=== PATIENT | female | born 1945 | race Caucasian/White ===

== ENCOUNTER → 2017-06-12 | Outpatient (CLI) | payer MEDICARE ==
--- NOTE | 2017-06-13 09:38 | MM ---
Reason for exam: screening (asymptomatic). Last mammogram was performed 1 year and 2 months ago. History: Patient is postmenopausal. Physical Findings: A clinical breast exam by your physician is recommended on an annual basis and results should be correlated with mammographic findings. MG Screening Mammo w CAD Bilateral CC and MLO view(s) were taken. Prior study comparison: April 21, 2016, bilateral MG screening mammo w CAD. November 17, 2014, bilateral MG screening mammo w CAD. The breast tissue is heterogeneously dense. This may lower the sensitivity of mammography. Stable benign calcifications. There is no discrete abnormality. No significant changes when compared with prior studies. ASSESSMENT: Benign, BI-RAD 2 RECOMMENDATION: Routine screening mammogram of both breasts in 1 year.
== END | disposition home or self-care (01) ==
LOC: RADMAMWWP 13:53
PROVIDERS: ATTEND Internal Medicine
DX: Z12.31 Encounter for screening mammogram for malignant neoplasm of breast (principal)

== ENCOUNTER → 2018-07-19 | Outpatient (CLI) | payer MEDICARE ==
--- NOTE | 2018-07-20 13:21 | MM ---
Reason for exam: screening (asymptomatic). Last mammogram was performed 1 year and 1 month ago. History: Patient is postmenopausal. Physical Findings: A clinical breast exam by your physician is recommended on an annual basis and results should be correlated with mammographic findings. MG Screening Mammo w CAD Bilateral CC and MLO view(s) were taken. Prior study comparison: June 12, 2017, bilateral MG screening mammo w CAD. April 21, 2016, bilateral MG screening mammo w CAD. The breast tissue is heterogeneously dense. This may lower the sensitivity of mammography. Stable benign calcifications. There is no discrete abnormality. No significant changes when compared with prior studies. ASSESSMENT: Benign, BI-RAD 2 RECOMMENDATION: Routine screening mammogram of both breasts in 1 year.
== END | disposition home or self-care (01) ==
LOC: RADMAMWWP 16:33
PROVIDERS: ATTEND Internal Medicine
DX: Z12.31 Encounter for screening mammogram for malignant neoplasm of breast (principal)
CPT/HCPCS: 77067

== ENCOUNTER → 2018-08-01 | Outpatient (CLI) | payer MEDICARE ==
--- NOTE | 2018-08-01 16:36 | XR ---
EXAMINATION TYPE: XR knee complete bilateral DATE OF EXAM: 08/01/2018 COMPARISON: NONE HISTORY: Chronic pain TECHNIQUE: 3 views each knee FINDINGS: There is calcification of the menisci and more on the left side. I see no displaced fractur e. There is narrowing of patellofemoral joint spaces. There is mild narrowing of the joint spaces. IMPRESSION: Chondrocalcinosis. No fracture seen. Osteoarthritic joint space narrowing.
--- NOTE | 2018-08-01 16:40 | XR ---
EXAMINATION TYPE: XR lumbosacral spine min 4V DATE OF EXAM: 08/01/2018 COMPARISON: NONE HISTORY: Chronic pain TECHNIQUE: 5 views FINDINGS: There is mild thoracolumbar levoscoliosis. There is some narrowing of the L4-5 L5-S1 disc s paces. There is spurring of endplates throughout the lumbar spine. Posterior elements appear intact. Sacroiliac joints are intact. IMPRESSION: Spondylotic changes. No fracture seen.
== END | disposition home or self-care (01) ==
LOC: RADXRMAIN 15:49
PROVIDERS: ATTEND Internal Medicine
DX: M47.817 Spondylosis without myelopathy or radiculopathy, lumbosacral region (principal); M11.262 Other chondrocalcinosis, left knee; M11.261 Other chondrocalcinosis, right knee; M17.0 Bilateral primary osteoarthritis of knee
CPT/HCPCS: 72110

== ENCOUNTER → 2018-11-29 | Outpatient (CLI) | payer MEDICARE ==
--- NOTE | 2018-11-30 08:52 | BD ---
EXAMINATION TYPE: Axial Bone Density DATE OF EXAM: 11/29/2018 COMPARISON: None. Baseline. CLINICAL HISTORY: M 89.9 disorder of bone Height: 62 Weight: 98.9 FRAX RISK QUESTIONS: Alcohol (3 or more units per day): NO Family History (Parent hip fracture): no Glucocorticoids (More than 3mos): no (Ex: prednisone, prednisolone, methylprednisolone, dexamethasone, and hydrocortisone). History of Fracture in Adulthood: no Secondary Osteoporosis: 1. Type 1 Diabetes: no 2. Hyperthyroidism: no 3. Menopause before 45: yes 4. Malnutrition: no 5. Chronic liver disease: no Rheumatoid Arthritis: yes Current Tobacco Use: no RISK FACTORS HISTORY OF: Family History of Osteoporosis: no Active: yes Diet low in dairy products/other sources of calcium: yes Postmenopausal woman: early age of 39 Lost more than 2 inches in height since high school: no MEDICATIONS: statins, hydrocodone, motrin Additional History: EXAM MEASUREMENTS: Bone mineral densitometry was performed using the [employer] System. Bone mineral density as measured about the Lumbar spine is: ----- L1-L4(G/cm2): 0.950 T Score Values are as follows: ----- L2: -2.4 ----- L3: -2.2 ----- L4: -0.9 ----- L1-L4: -1.9 Bone mineral density : baseline Bone mineral density about the R hip (g/cm2): 0.662 Bone mineral density about the L hip (g/cm2): 0.625 T Score values are as follows: -----R Neck: -2.7 -----L Neck: -3.0 -----R Total: -2.6 -----L Total: -3.0 Bone mineral density : baseline IMPRESSION: Osteoporosis (T Score less than -2.5). There is increased fracture risk and therapy is usually indicated based on age. Re-Screen 1-2 years. NOTE: T-SCORE=SD OF THE YOUNG ADULT MEAN.
== END | disposition home or self-care (01) ==
LOC: RADBDWWP 15:30
PROVIDERS: ATTEND Internal Medicine
DX: M81.0 Age-related osteoporosis without current pathological fracture (principal)
CPT/HCPCS: 77080

== ENCOUNTER → 2019-01-15 | Outpatient (CLI) | payer MEDICARE ==
[~2019-01-15] MED LIST: DENOSUMAB 60 MG/ML 1 ML SYRINGE SQ NR
[2019-01-15 13:47] VITALS: BP 118/66; PULSE 80; RESP 16; TEMP 97.7
== END ==
LOC: PROCWHC3 13:25
PROVIDERS: ATTEND Internal Medicine
DX: M81.0 Age-related osteoporosis without current pathological fracture (principal)
CPT/HCPCS: 96372; J0897

== ENCOUNTER → 2019-02-13 | Outpatient (CLI) | payer MEDICARE ==
--- NOTE | 2019-02-13 14:28 | XR ---
EXAMINATION TYPE: XR lumbosacral spine min 4V DATE OF EXAM: 02/13/2019 CLINICAL HISTORY: 08/01/2018 TECHNIQUE: Frontal, lateral, and oblique images of the lumbar spine are obtained. COMPARISON: 08/01/2018 FINDINGS: There is a mild levoscoliosis of the lumbar spine. Intervertebral disc space narrowing is seen at L4-L5 and L5-S1. There is grade 1 anterolisthesis of L4 on L5 unchanged from the prior. Multi level anterior osteophytes and facet arthropathy are seen within the lumbar spine. No new vertebral b dulce height loss. Mild atherosclerosis of the abdominal aorta. Oblique images demonstrate neural foraminal narrowing at L4-L5 on the right and at L4-L5 as well as L 5-S1 on the left appearing mild radiographically. Cholecystectomy clips are noted. There is generaliz ed osseous demineralization seen. IMPRESSION: 1. No acute fracture or new malalignment is seen in the lumbar spine. Stable grade 1 anterolisthesis of L4 on L5 in comparison to 2018. 2. Moderate multilevel degenerative disc disease and mild levoscoliosis of the lumbar spine. 3. Generalized osseous demineralization.
== END | disposition home or self-care (01) ==
LOC: RADXRMAIN 11:47
PROVIDERS: ATTEND Internal Medicine
DX: M51.36 Other intervertebral disc degeneration, lumbar region (principal); M43.16 Spondylolisthesis, lumbar region; M41.86 Other forms of scoliosis, lumbar region; M81.0 Age-related osteoporosis without current pathological fracture
CPT/HCPCS: 72110

== ENCOUNTER → 2019-12-24 | Outpatient (CLI) | payer MEDICARE ==
--- NOTE | 2019-12-25 09:06 | MM ---
Reason for exam: screening (asymptomatic). Last mammogram was performed 1 year and 5 months ago. History: Patient is postmenopausal. Physical Findings: A clinical breast exam by your physician is recommended on an annual basis and results should be correlated with mammographic findings. MG 3D Screening Mammo W/Cad Bilateral CC and MLO view(s) were taken. Prior study comparison: July 19, 2018, bilateral MG screening mammo w CAD. June 12, 2017, bilateral MG screening mammo w CAD. The breast tissue is heterogeneously dense. This may lower the sensitivity of mammography. Benign appearing bilateral calcifications. No suspicious abnormality. No significant changes when compared with prior studies. ASSESSMENT: Benign, BI-RAD 2 RECOMMENDATION: Routine screening mammogram of both breasts in 1 year.
== END | disposition home or self-care (01) ==
LOC: RADMAMWWP 09:18
PROVIDERS: ATTEND Internal Medicine
DX: Z12.31 Encounter for screening mammogram for malignant neoplasm of breast (principal)
CPT/HCPCS: 77063; 77067

== ENCOUNTER 2021-05-02 14:11 | Inpatient (IN) | payer MEDICARE ==
[2021-05-02] MEDS ORDERED: KETOROLAC 15 MG/ML 1 ML VIAL IVP STA (15:13)
[2021-05-02] MEDS ORDERED: SODIUM CHLORIDE 0.9% 1,000 ML IV STA (15:13)
[2021-05-02 15:36] LABS: Basophils % (A) 0 %; Eosinophils % (A) 1 %; HCT 33.9 % (34.0-46.0); HGB 11.3 gm/dL (11.4-16.0); Lymphocytes # (A) 0.8 k/uL (1.0-4.8); Lymphocytes % (A) 13 %; MCH 26.9 pg (25.0-35.0); MCHC 33.4 g/dL (31.0-37.0); MCV 80.5 fL (80.0-100.0); Mean Platelet Volume 7.2; Monocytes # (A) 0.3 k/uL (0-1.0); Monocytes % (A) 5 %; Neutrophils % (A) 80 %; Platelet Count 455 k/uL (150-450); RBC 4.21 m/uL (3.80-5.40); RDW 13.2 % (11.5-15.5); WBC 6.2 k/uL (3.8-10.6)
[2021-05-02 15:51] LABS: African American GFR (CKD) >90 (>60 ml/min/1.73 sqM); Albumin 3.6 g/dL (3.5-5.0); Alkaline Phosphatase 91 U/L (38-126); Anion Gap 7 mmol/L; Blood Urea Nitrogen 24 mg/dL (7-17); Calcium 9.6 mg/dL (8.4-10.2); Carbon Dioxide 30 mmol/L (22-30); Chloride 100 mmol/L (98-107); Glucose 101 mg/dL (74-99); Magnesium 1.9 mg/dL (1.6-2.3); Non-African American GFR(CKD) 90 (>60 ml/min/1.73 sqM); Potassium 4.8 mmol/L (3.5-5.1); Sodium 137 mmol/L (137-145); Total Bilirubin 0.4 mg/dL (0.2-1.3); Total Protein 6.7 g/dL (6.3-8.2)
[2021-05-02 16:15] LABS: ALT 3390 U/L (4-34)
--- NOTE | 2021-05-02 16:37 | XR ---
Result: History: Pain. Comparison: None available. Technique: 3 views of the right knee. Findings: No acute fracture or dislocation is seen. The visualized osseous structures are in anatomic alignmen t. There is mild to moderate osteoarthritis of the lateral compartment, otherwise mild osteoarthriti s elsewhere. Small superior patellar enthesophyte seen. There is at least small knee joint effusion. Impression: No acute osseous abnormality. Mild to moderate degenerative changes with joint effusion.
[2021-05-02 16:39] LABS: AST 3968 U/L (14-36)
[2021-05-02 18:18] LABS: Amylase 77 U/L (30-110); Lipase 244 U/L (23-300)
--- NOTE | 2021-05-02 18:48 | ED ---
General Adult HPI - General Chief complaint: Extremity Problem,Nontraumatic Stated complaint: Low BP Time Seen by Provider: 05/02/21 14:46 Source: patient, RN notes reviewed Mode of arrival: ambulatory Limitations: no limitations - History of Present Illness Initial comments: 76-year-old female with a past medical history of hyperlipidemia presents to the emergency room for a chief complaint of bilateral leg pain. Patient reports that she has had chronic leg pain from her arthritis for years. However over the past few weeks the pain has worsened. She has some swelling in her right knee as well. States that this has also been causing her pain. Her friend reports that she has not been eating or drinking at home and she feels she could be dehydrated.Patient has no other complaints at this time including shortness of breath, chest pain, abdominal pain, nausea or vomiting, headache, or visual changes. - Related Data Home Medications Medication Instructions Recorded Confirmed No Known Home Medications 05/02/21 05/02/21 Allergies Allergy/AdvReac Type Severity Reaction Status Date / Time No Known Allergies Allergy Verified 05/02/21 17:54 Review of Systems ROS Statement: Those systems with pertinent positive or pertinent negative responses have been documented in the HPI. ROS Other: All systems not noted in ROS Statement are negative. Past Medical History Past Medical History: Hyperlipidemia, Osteoarthritis (OA) History of Any Multi-Drug Resistant Organisms: None Reported Past Surgical History: Hysterectomy Past Psychological History: No Psychological Hx Reported Smoking Status: Former smoker Past Alcohol Use History: None Reported Past Drug Use History: None Reported - Past Family History Father Family Medical History: Coronary Artery Disease (CAD) Mother Family Medical History: Coronary Artery Disease (CAD), Myocardial Infarction (ND) General Exam - General Exam Comments Initial Comments: Right leg: Patient does have some mild edema noted of the right knee. No erythema. Flexion to 90 of the right knee, extension to neutral position. DP pulse 2+. Capillary refill less than 2 seconds. No tenderness throughout the lower extremity Left leg: No erythema or edema. Full range of motion of the left lower extremity. DP pulse 2+. Capillary refill less than 2 seconds. No tenderness throughout the left lower extremity Limitations: no limitations General appearance: alert, in no apparent distress Head exam: Present: atraumatic Eye exam: Present: normal appearance, PERRL, EOMI. Absent: scleral icterus, conjunctival injection, periorbital swelling ENT exam: Present: normal exam, mucous membranes moist Neck exam: Present: normal inspection. Absent: tenderness, meningismus, l ymphadenopathy Respiratory exam: Present: normal lung sounds bilaterally. Absent: respiratory distress, wheezes, rales, rhonchi, stridor Cardiovascular Exam: Present: regular rate, normal rhythm, normal heart sounds. Absent: systolic murmur, diastolic murmur, rubs, gallop, clicks GI/Abdominal exam: Present: soft, normal bowel sounds. Absent: distended, tenderness, guarding, rebound, rigid Course Vital Signs 05/02/21 05/02/21 05/02/21 14:12 15:18 16:00 Temperature 98.5 F 97.4 F L 97.4 F L Pulse Rate 83 78 78 Respiratory 16 18 18 Rate Blood Pressure 114/65 118/54 118/54 O2 Sat by Pulse 97 96 96 Oximetry 05/02/21 17:00 Temperature Pulse Rate 75 Respiratory 18 Rate Blood Pressure 136/72 O2 Sat by Pulse 98 Oximetry Medical Decision Making - Medical Decision Making Vitals are stable. CBC is unremarkable. CMP does show evidence of dehydration as well as significant transaminitis with AST of 3900 and an ALT of 3300. amylase and lipase are normal. Acute hepatitis panel added. Case was discussed with Dr. Obregon who does accept admission. Requests upper abdominal ultrasound be performed. This was ordered prior to admission. GI will be consulted. X-ray of the knee was also obtained which shows no acute osseous abnormality but there is mild to moderate degenerative changes with joint effusion. - Lab Data Result diagrams: 05/02/21 15:31 05/02/21 15:31 Lab Results 05/02/21 05/02/21 05/02/21 Range/Units 15:13 15:31 15:31 WBC 6.2 (3.8-10.6) k/uL RBC 4.21 (3.80-5.40) m/uL Hgb 11.3 L (11.4-16.0) gm/dL Hct 33.9 L (34.0-46.0) % MCV 80.5 (80.0-100.0) fL MCH 26.9 (25.0-35.0) pg MCHC 33.4 (31.0-37.0) g/dL RDW 13.2 (11.5-15.5) % Plt Count 455 H (150-450) k/uL MPV 7.2 Neutrophils % 80 % Lymphocytes % 13 % Monocytes % 5 % Eosinophils % 1 % Basophils % 0 % Neutrophils # 5.0 (1.3-7.7) k/uL Lymphocytes # 0.8 L (1.0-4.8) k/uL Monocytes # 0.3 (0-1.0) k/uL Eosinophils # 0.0 (0-0.7) k/uL Basophils # 0.0 (0-0.2) k/uL Sodium 137 (137-145) mmol/L Potassium 4.8 (3.5-5.1) mmol/L Chloride 100 (98-107) mmol/L Carbon Dioxide 30 (22-30) mmol/L Anion Gap 7 mmol/L BUN 24 H (7-17) mg/dL Creatinine 0.57 (0.52-1.04) mg/dL Est GFR (CKD-EPI)AfAm >90 (>60 ml/min/1.73 sqM) Est GFR (CKD-EPI)NonAf 90 (>60 ml/min/1.73 sqM) Glucose 101 H (74-99) mg/dL Calcium 9.6 (8.4-10.2) mg/dL Magnesium 1.9 (1.6-2.3) mg/dL Total Bilirubin 0.4 (0.2-1.3) mg/dL AST 3968 H (14-36) U/L ALT 3390 H (4-34) U/L Alkaline Phosphatase 91 (38-126) U/L Total Protein 6.7 (6.3-8.2) g/dL Albumin 3.6 (3.5-5.0) g/dL Amylase 77 (30-110) U/L Lipase 244 (23-300) U/L Disposition Clinical Impression: Transaminitis, Chronic leg pain, Effusion of right knee joint Disposition: ADMITTED IP TO THIS HOSP Is patient prescribed a controlled substance at d/c from ED?: No Referrals: James Rosen MD [Primary Care Provider] - 1-2 days Time of Disposition: 18:57
--- NOTE | 2021-05-02 18:52 | US ---
EXAMINATION TYPE: US abdomen limited DATE OF EXAM: 05/02/2021 COMPARISON: NONE CLINICAL HISTORY: ruq. EXAM MEASUREMENTS: Liver Length: 14.4 cm CBD: 0.7 cm Right Kidney: 9.3 x 3.8 x 4.8 cm Pancreas: visualized portions wnl, limited by overlying midline bowel gas Liver: wnl Gallbladder: not seen at this time, patient states she has not had her gallbladder removed Evidence for sonographic Giraldo's sign: no CBD: dilated Right Kidney: wnl IMPRESSION: No sonographic evidence of acute abnormality. Gallbladder not definitively identified. Recommend correlation with surgical history.
[2021-05-02] MEDS ORDERED: NALOXONE 0.4 MG/ML 1 ML VIAL IV PRN (18:58)
[2021-05-02] MEDS: SODIUM CHLORIDE 0.9% 1,000 ML IV SCH (20:25)
[2021-05-02] MEDS: HYDROmorphone 0.5 MG/0.5 ML SYRINGE IVP PRN (21:47)
[2021-05-02 23:18] LABS: Hepatitis A Antibody IgM Non-Reactive (Non-Reactive); Hepatitis B Core IgM Non-Reactive (Non-Reactive); Hepatitis B Surface Antigen Non-Reactive (Non-Reactive); Hepatitis C IgG Antibody Non-Reactive (Non-Reactive)
[2021-05-03 08:38] LABS: INR 1.2 (<1.2)
[2021-05-03 08:41] LABS: HCT 31.8 % (34.0-46.0); HGB 10.7 gm/dL (11.4-16.0); Hypochromasia Slight; MCH 27.5 pg (25.0-35.0); MCHC 33.6 g/dL (31.0-37.0); MCV 81.9 fL (80.0-100.0); Platelet Count 383 k/uL (150-450); RBC 3.89 m/uL (3.80-5.40); RDW 13.1 % (11.5-15.5); WBC 5.2 k/uL (3.8-10.6)
[2021-05-03 08:49] LABS: African American GFR (CKD) >90 (>60 ml/min/1.73 sqM); Albumin 2.9 g/dL (3.5-5.0); Alkaline Phosphatase 75 U/L (38-126); Anion Gap 8 mmol/L; Blood Urea Nitrogen 23 mg/dL (7-17); Calcium 8.8 mg/dL (8.4-10.2); Carbon Dioxide 25 mmol/L (22-30); Chloride 104 mmol/L (98-107); Globulin 2.8 g/dL; Glucose 139 mg/dL (74-99); Non-African American GFR(CKD) 89 (>60 ml/min/1.73 sqM); Potassium 4.1 mmol/L (3.5-5.1); Sodium 137 mmol/L (137-145); Total Bilirubin 0.4 mg/dL (0.2-1.3); Total Protein 5.7 g/dL (6.3-8.2)
[2021-05-03 09:15] LABS: ALT 2224 U/L (4-34)
[2021-05-03 09:26] LABS: AST 1427 U/L (14-36)
[2021-05-03 12:37] LABS: Alpha Fetoprotein, Tumor Mkr <2.5 ng/mL (0.0-7.9)
[2021-05-03] MEDS: SODIUM CHLORIDE 0.9% 1,000 ML IV SCH (14:26)
[2021-05-03 15:31] VITALS: BMI 16.5
[2021-05-03] MEDS ORDERED: ONDANSETRON 4 MG/2 ML VIAL IVP PRN (16:48)
[2021-05-03] MEDS ORDERED: IPRATROPIUM-ALBUTEROL 3 ML NEB INHALATION PRN (16:48)
--- NOTE | 2021-05-03 18:00 | CONS ---
CONSULTATION DATE OF DICTATION: May 03, 2021. REQUESTING PHYSICIAN: Dr. Gaston. REASON FOR CONSULTATION: Elevated LFTs. HISTORY OF PRESENT ILLNESS: The patient is a 76-year-old pleasant white female with no significant past medical history, admitted to hospital complaining of bilateral leg pain for the last 3 days duration. She complains of tingling, numbness and shooting, burning pain in the lower extremities. The symptoms have been progressively getting worse for the last few days. Came to the emergency room and on routine labs she was noted to have significant elevation of ALT and AST with AST of 3968 and ALT of 3390. T-bilirubin and alkaline phosphatase are within normal limits. The patient denies taking any new medications over the counter. She denies any recent infections. No fever, no chills. She reports no abdominal pain, nausea, vomiting. She takes multivitamins over the counter and Melatonin. No recent antibiotic use. No recent travel history. No prior history of chronic liver disease. No history of jaundice or hepatitis in the past. She did have hepatitis serologies for A, B and C that were negative. Repeat labs from today showed an AST of 1427, ALT of 2224. She also had ultrasound of the abdomen done that showed normal-appearing liver, gallbladder was not seen and slightly dilated CBD. PAST MEDICAL HISTORY: Significant for lower leg pain. PAST SURGICAL HISTORY: Hysterectomy. MEDICATIONS: Medications at home none other than multivitamins. FAMILY HISTORY: Father coronary artery disease. Mother coronary artery disease. SOCIAL HISTORY: Chronic smoker. No alcohol use. No intravenous drug use. REVIEW OF SYSTEMS: CARDIOPULMONARY: No chest pain or shortness of breath. : No dysuria, no hematuria. SKIN unremarkable. ENDOCRINE unremarkable. MUSCULOSKELETAL: Mild chronic arthritis and takes [id number] Tylenol Arthritis as needed. HEMATOLOGY: Unremarkable. PSYCHIATRIC unremarkable. ENT/vision unremarkable. CONSTITUTIONAL: No recent weight loss. No fever, chills, night sweats. GI as mentioned above. PHYSICAL EXAMINATION: Appears comfortable. Vital signs are stable. Blood pressure is 118/60, pulse rate 70, temperature 97. HEENT examination unremarkable. Conjunctivae pink. Sclerae anicteric. Oral cavity no lesions. NECK: No JVD or lymph node enlargement. CHEST was clear to auscultation. HEART: Regular rate and rhythm. ABDOMEN: Soft. Bowel sounds are positive. No organomegaly. EXTREMITIES: No pedal edema. NEUROLOGIC: Alert and oriented x3. No focal deficits. LABS: From yesterday: WBC 6.2, hemoglobin 11.3, platelets 455. BUN and creatinine are normal. AST 3968, ALT 3390, T bilirubin 0.4, alkaline phosphatase 91. Labs from today: AST down to 1427, ALT down to 2224. T-bilirubin, alkaline phosphatase is normal. INR 1.2, hemoglobin 10.7, WBC 5.2, and platelets of 383. IMPRESSION: Asymptomatic elevation of serum transaminases and medical picture is consistent with acute hepatitis. The patient noted to have significant elevation of serum transaminases in the range of 3000 which are somewhat improved today. Hepatitis serologies for A, B and C are negative. The patient denies taking any prescription medications or taking any new medications recently. No history of Tylenol use other than Tylenol Arthritis that she takes 1 pill a day. Acetaminophen level was less than 10. At this time, possibility of medication induced hepatitis versus viral hepatitis or other etiologies need to be considered. RECOMMENDATIONS: 1. We will continue workup for acute hepatitis. We will obtain CMV and EBV viral serologies. 2. Monitor LFTs closely. 3. If her serum transaminases continue to improve, she will not need any further workup. However, if they continue to persistently abnormal then we will consider further workup for chronic liver disease and will follow with you closely. Thank you for this consultation. MARV / BASSAM: [id number] /
[2021-05-04] MEDS: HYDROmorphone 0.5 MG/0.5 ML SYRINGE IVP PRN ×2 (00:06→08:55)
[2021-05-04] MEDS: SODIUM CHLORIDE 0.9% 1,000 ML IV SCH ×2 (05:22→07:21)
[2021-05-04] MEDS ORDERED: PANTOPRAZOLE 40 MG TABLET PO SCH (07:30)
[2021-05-04 07:35] LABS: Glucose,Whole Blood 90 mg/dL (75-99)
[2021-05-04] MEDS ORDERED: methylPREDNISolone ACETATE 40 MG/ML 1 ML VIAL INTRAARTIC STA (09:11)
[2021-05-04] MEDS ORDERED: LIDOCAINE 1% INJ 10MG/ML (20 ML MDV) SQ ONE (09:11)
[2021-05-04] MEDS ORDERED: LIDOCAINE 2% INJ 20 MG/ML (20 ML MDV) SQ STA (09:14)
--- NOTE | 2021-05-04 09:19 | P.DS ---
Providers Date of admission: 05/02/21 19:03 Expected date of discharge: 05/04/21 Attending physician: Renny Obregon Consults: 05/02/21 18:59 Consult Physician Routine Consulting Provider: Safia Moura Consult Reason/Comments: acute hepatitis Do you want consulting provider notified?: Yes 05/03/21 09:47 Consult Physician Routine Consulting Provider: Chino Duffy Consult Reason/Comments: right knee effusion Do you want consulting provider notified?: Yes Primary care physician: James Rosen MD Hospital Course: 76-year-old female , my clinic patient who I have not seen for the past year since the unexpected passing away of her with past medical history of hyperlipidemia, rheumatoid arthritis, dementia comes in with worsening swelling and leg pain. Since her right knee pain was worse, patient's family encouraged her to go to the ER for evaluation. Patient denies any other symptoms including nausea or vomiting or abdominal pain, chest pain or shortness of breath. Patient has not been able to take care of herself since the passing away of her in July last year. She has lost her appetite and has stopped all her medications. Vitals are stable temp of 98.3 pulse 74 respiratory rate 20 blood pressure 118/61 labs were reviewed patient has a WBC count of 6.2 hemoglobin 10.3 platelet 455 BUN of 24 creatinine 0.57 glucose 111 increased AST elevated AST 3968 ALT 3390 total bilirubin 0.4 patient does endorse some epigastric pain but denies any nausea or vomiting or black stools. Hepatitis panel ordered. Tylenol levels ordered. Tumor markers ordered. GI consulted. Orthopedic consulted for possible aspiration of the knee 05/04: Patient has been seen by orthopedics for right knee effusion status post aspiration and cortisone injection with recommendations for rest, ice and compression and elevation. Patient in follow-up as an outpatient as needed. Patient has also been seen by GI with recommendations for follow-up outpatient. Repeat blood work reveals significant improvement with total bilirubin normal at 0.3, AST improved to 471 and ALT improved at 1437. Alkaline phosphatase normal at 68. Other lab work done includes CHRISTY is negative, anti-mitochondrial antibody 3.4. CMV nonreactive. EBV less than 10. Patient will be discharged home today once arrangements are completed. Patient will have repeat blood work in 3-4 days. DISCHARGE DIAGNOSES 1. Acute right knee pain secondary to joint effusion status post aspiration and cortisone injection 2. Acute hepatitis with no prior history of hepatitis. 3. Rheumatoid arthritis with osteoarthritis followed Dr. Chang currently has not follow-up with providers. 4. Hyperlipidemia 5. Dementia with underlying depression from loss of . DISCHARGE PLAN Home Impression and plan of care have been directed as dictated by the signing physician. Josie Feng nurse practitioner acting as scribe for signing physician. Patient Condition at Discharge: Good Plan - Discharge Summary Discharge Rx Participant: Yes New Discharge Prescriptions: No Action No Known Home Medications Discharge Medication List No Known Home Medications 05/02/21 [History] Follow up Appointment(s)/Referral(s): James Rosen MD [Primary Care Provider] - 05/07/21 9:15 am Safia Moura MD [STAFF PHYSICIAN] - 05/31/21 2:00 pm Chino Duffy DO [Doctor of Osteopathic Medicine] - 05/28/21 9:30 am Ambulatory/Diagnostic Orders: Comprehensive Metabolic Panel [LAB.AMB] Location: None Selected Patient Instructions/Handouts: Dehydration (DC), Swollen Knee Joint (GEN) Activity/Diet/Wound Care/Special Instructions: No Tylenol, no ibuprofen Discharge Disposition: HOME SELF-CARE
--- NOTE | 2021-05-04 09:27 | P.PN ---
Subjective Progress Note Date: 05/04/21 Principal diagnosis: Elevated LFTs 76-year-old female who presented to the emergency department with complaints of bilateral leg pain. She was noted to have significant elevation in her AST and ALT in the 3006, with no elevation in her total bilirubin or alkaline phosphatase. Patient denies any previous history of liver disease, no history of alcoholism, no recent new medications, does take Tylenol arthritis daily, but only 1 pill. Acetaminophen level was less than 10. Renal ultrasound was unremarkable. Patient is seen and examined sitting up in bed. She is denying a ny abdominal pain, nausea, or vomiting. Jenifer-Ly virus and cytomegalovirus both negative, CHRISTY negative, AFP normal. Repeat labs today are still pending. Patient is eating and tolerating her diet. She states she did get a little lightheaded through the night and this morning. Objective - Vital Signs Vital signs: Vital Signs Temp 98.1 F 05/04/21 07:07 Pulse 69 05/04/21 07:07 Resp 20 05/04/21 07:07 BP 117/64 05/04/21 07:07 Pulse Ox 95 05/04/21 07:14 Intake & Output 05/03/21 05/04/21 05/04/21 18:59 06:59 18:59 Intake Total 1150 900 Output Total 200 Balance 1150 700 Weight 40.823 kg Intake: Intake, IV Titration 750 900 Amount Sodium Chloride 0.9% 1, 750 900 000 ml @ 75 mls/hr IV . [id number] [facility] Rx#:[id number] Oral 400 Output: Urine 200 Other: Voiding Method Toilet Toilet # Voids 3 - Exam General appearance: The patient is alert, oriented, appears in no acute distress. HET: Head is normocephalic and atraumatic. Conjunctiva pink. Sclera anicteric. Neck: Supple without lymphadenopathy. Abdomen: Soft, nontender, nondistended with bowel sounds. No guarding or rigidity. Extremities: Normal skin color and turgor. No pedal edema Skin: No rashes, no jaundice Neurological: No focal deficits. Alert and oriented 3. - Labs CBC & Chem 7: 05/03/21 08:17 05/04/21 06:56 Labs: Abnormal Lab Results - Last 24 Hours (Table) 05/03/21 Range/Units 08:17 AST 1427 H (14-36) U/L Assessment and Plan (1) Transaminitis Narrative/Plan: 76-year-old female who presented to the emergency department with complaints of leg pain was noted to have presenting labs with significantly elevated AST and ALT. Patient has no previous history of liver disease, denies any new medications, does state she takes Tylenol arthritis daily but only 1 pill. Liver enzymes have trended down. Ultrasound was performed and was unremarkable. She is without any abdominal pain, distention, nausea, or vomiting. Findings are consistent with acute hepatitis, Need to consider medication induced hepatitis versus viral hepatitis, however CMV and EBV are both negative, hepatitis panel is negative. We'll need to consider other possible etiologies. Current Visit: Yes Status: Acute Code(s): R74.01 - ELEVATION OF LEVELS OF LIVER TRANSAMINASE LEVELS SNOMED Code(s): 731185790 Plan: 1. Continue symptomatic and supportive care 2. Diet as tolerated 3. CMV, Jenifer-Ly ordered and reviewed 4. Hepatitis panel negative 5. Daily CMP reviewed with LFTs trending down 6. Patient will need outpatient follow-up with gastroenterology to trend liver enzymes Thank you for this consultation, patient may be discharged from a gastroenterology standpoint with close outpatient monitoring Dr. Jason Moura I agree with the dictator's note, documented as a scribe by Diamante Falcon.
[2021-05-04 09:44] VITALS: RESP 16
[2021-05-04 10:14] LABS: African American GFR (CKD) 108.2 (60.0-200.0); Albumin 3.1 g/dL (3.80-4.90); Albumin/Globulin Ratio 1.29 (1.60-3.17); Anion Gap 5.8 mmol/L (4.00-12.00); Calcium 8.1 mg/dL (8.7-10.3); Carbon Dioxide 26.2 mmol/L (21.6-31.8); Globulin 2.4 g/dL (1.6-3.3); Non-African American GFR(CKD) 93.4 (60.0-200.0); Potassium 4.1 mmol/L (3.5-5.5); Total Bilirubin 0.3 mg/dL (0.2-1.2); Total Protein 5.5 g/dL (6.2-8.2)
--- NOTE | 2021-05-04 10:44 | P.HPIM ---
History of Present Illness H&P Date: 05/03/21 76 years old female , my clinic patient who I have not seen for the past year since the unexpected passing away of her with past medical history of hyperlipidemia, rheumatoid arthritis, dementia comes in with worsening swelling and leg pain. Since her right knee pain was worse, patient's family encouraged her to go to the ER for evaluation. Patient denies any other symptoms including nausea or vomiting or abdominal pain, chest pain or shortness of breath. Patient has not been able to take care of herself since the passing away of her in July last year. She has lost her appetite and has stopped all her medications. Vitals are stable temp of 98.3 pulse 74 respiratory rate 20 blood pressure 118/61 labs were reviewed patient has a WBC count of 6.2 hemoglobin 10.3 platelet 455 BUN of 24 creatinine 0.57 glucose 111 increased AST elevated AST 3968 ALT 3390 total bilirubin 0.4 patient does endorse some epigastric pain but denies any nausea or vomiting or black stools. Hepatitis panel ordered. Tylenol levels ordered. Tumor markers ordered. GI consulted. Orthopedic consulted for possible aspiration of the knee Review of Systems Constitutional: No fevers, chills and weight loss. HENT: Negative. Negative for hearing loss. Eyes: Negative. Respiratory: No cough, shortness of breath or hemoptysis. No sputum production and wheezing. Cardiovascular: No chest pain, palpitations, orthopnea, claudication and PND. No swelling of feet Gastrointestinal: Negative for nausea, vomiting and melena. Genitourinary: Negative for urgency and frequency. Musculoskeletal: Negative for myalgias and neck pain. right knee pain on the right Skin: Negative. Negative for itching and rash. Neurological: Negative for headaches. Psychiatric/Behavioral: positive for depression Past Medical History Past Medical History: Dementia (no other significant family history ), Hyperlipidemia, Osteoarthritis (OA), Rheumatoid Arthritis (RA) History of Any Multi-Drug Resistant Organisms: None Reported Past Surgical History: Hysterectomy Past Anesthesia/Blood Transfusion Reactions: No Reported Reaction Past Psychological History: No Psychological Hx Reported Smoking Status: Former smoker Past Alcohol Use History: None Reported Past Drug Use History: None Reported - Past Family History Father Family Medical History: Coronary Artery Disease (CAD) Mother Family Medical History: Coronary Artery Disease (CAD), Myocardial Infarction ([place]) Medications and Allergies Home Medications Medication Instructions Recorded Confirmed Type No Known Home Medications 05/02/21 05/02/21 History Allergies Allergy/AdvReac Type Severity Reaction Status Date / Time No Known Allergies Allergy Verified 05/02/21 17:54 Physical Exam Vitals: Vital Signs Temp Pulse Pulse Resp BP BP Pulse Ox 05/03/21 07:15 98.7 F 70 16 118/60 96 05/03/21 01:36 98.1 F 78 14 109/55 94 L 05/02/21 20:22 97.9 F 85 18 114/63 98 05/02/21 20:00 97.5 F L 83 16 128/79 95 05/02/21 19:00 70 18 98 05/02/21 18:00 71 18 98 05/02/21 17:00 75 18 136/72 98 05/02/21 16:00 97.4 F L 78 18 118/54 96 05/02/21 15:18 97.4 F L 78 18 118/54 96 05/02/21 14:12 98.5 F 83 16 114/65 97 Intake and Output 05/02/21 05/03/21 05/03/21 22:59 06:59 14:59 Intake Total 200 Balance 200 Intake: Oral 200 Other: Voiding Method Toilet # Voids 1 Weight 40.823 kg CONSTITUTIONAL: Patient appears comfortable in no apparent distress. NECK: No JVD or lymph node enlargement. HEET: Unremarkable, conjunctivae/corneas clear. Sclera anicteric. Oral cavity no lesions. RESPIRATORY: Clear to auscultation bilaterally. CARDIOVASCULAR: Regular rate and rhythm.no murmurs GASTROINTESTINAL: soft, non tender, no organomegaly. Bowel sounds are positive. PSYCH: Denies any depression or anxiety. SKIN: No rashes Musculoskelatal : right knee effusion noted NEUROLOGICAL: alert, oriented x 3, no focal deficits noted. Results CBC & Chem 7: 05/03/21 08:17 05/03/21 08:17 Labs: Abnormal Lab Results - Last 24 Hours (Table) 05/02/21 05/02/21 05/03/21 Range/Units 15:31 15:31 08:17 Hgb 11.3 L (11.4-16.0) gm/dL Hct 33.9 L (34.0-46.0) % Plt Count 455 H (150-450) k/uL Lymphocytes # 0.8 L (1.0-4.8) k/uL INR 1.2 H (<1.2) BUN 24 H (7-17) mg/dL Glucose 101 H (74-99) mg/dL AST 3968 H (14-36) U/L ALT 3390 H (4-34) U/L Total Protein (6.3-8.2) g/dL Albumin (3.5-5.0) g/dL 05/03/21 05/03/21 Range/Units 08:17 08:17 Hgb 10.7 L (11.4-16.0) gm/dL Hct 31.8 L (34.0-46.0) % Plt Count (150-450) k/uL Lymphocytes # (1.0-4.8) k/uL INR (<1.2) BUN 23 H (7-17) mg/dL Glucose 139 H (74-99) mg/dL AST 1427 H (14-36) U/L ALT 2224 H (4-34) U/L Total Protein 5.7 L (6.3-8.2) g/dL Albumin 2.9 L (3.5-5.0) g/dL Thrombosis Risk Factor Assmnt - DVT/VTE Prophylaxis DVT/VTE Prophylaxis: Pharmacologic Prophylaxis ordered - Choose All That Apply Each Risk Factor Represents 3 Points: Age 75 years or older Thrombosis Risk Factor Assessment Total Risk Factor Score: 3 Thrombosis Risk Factor Assessment Level: Moderate Risk Assessment and Plan Plan: 1. Acute right knee pain decreased mobility. X-ray knee suggestive of joint effusion. Ortho consulted for possible knee aspiration 2. Acute hepatitis with no prior history of hepatitis. Acetaminophen levels negative. Hepatitis panel negative. Ultrasound abdomen suggestive of dilated CBD. No evidence of gallbladder seen though patient is refusing the history of cholecystectomy. Gastroenterology consulted 3. Rheumatoid arthritis with osteoarthritis followed Dr. Chang currently has not follow-up with providers. Appears stable 4. Hyperlipidemia off medications currently 5. Dementia with underlying depression from loss of . Will discuss with patient about initiation of antidepressant as patient is noncompliant and stopped the medication 6. CODE STATUS full code #7 DVT prophylaxis Heparin every 12 8. GI prophylaxis with Protonix 40 g daily
--- NOTE | 2021-05-04 11:30 | P.CNOR ---
History of Present Illness - HPI Consult date: 05/04/21 History of present illness: This is a 76-year-old male who is admitted for bilateral lower extremity pain and transaminitis. Patient is seen and evaluated at bedside today and complains of pain in her right knee along with swelling. Patient states that the right knee has been swollen for about one month. Patient states that she used to get cortisone injections in the right knee for similar symptoms. Patient denies any injury, fever or chills. Patient's past medical history is significant for dementia, hyperlipidemia, osteoarthritis and rheumatoid arthritis. Review of Systems See HPI. Past Medical History Past Medical History: Dementia (no other significant family history ), Hyperlipidemia, Osteoarthritis (OA), Rheumatoid Arthritis (RA) History of Any Multi-Drug Resistant Organisms: None Reported Past Surgical History: Hysterectomy Past Anesthesia/Blood Transfusion Reactions: No Reported Reaction Past Psychological History: No Psychological Hx Reported Smoking Status: Former smoker Past Alcohol Use History: None Reported Past Drug Use History: None Reported - Past Family History Father Family Medical History: Coronary Artery Disease (CAD) Mother Family Medical History: Coronary Artery Disease (CAD), Myocardial Infarction ([place]) Medications and Allergies Home Medications Medication Instructions Recorded Confirmed Type No Known Home Medications 05/02/21 05/02/21 History Allergies Allergy/AdvReac Type Severity Reaction Status Date / Time No Known Allergies Allergy Verified 05/02/21 17:54 Physical Examination On exam patient is resting comfortably in bed in no acute distress. Patient is alert and oriented. There is a moderate right knee effusion present. There is no erythema and skin is intact. Patient has good range of motion of the right knee. Calf is soft and nontender to palpation. Sensation intact. Neurovascular status and circulatory status are intact. Results X-rays of the right knee are reviewed revealing osteoarthritis. No fracture or dislocation. - Labs Labs: Abnormal Lab Results - Last 24 Hours (Table) 05/03/21 Range/Units 08:17 AST 1427 H (14-36) U/L H & H 05/02/21 05/03/21 Range/Units 15:31 08:17 Hgb 11.3 L 10.7 L (11.4-16.0) gm/dL Hct 33.9 L 31.8 L (34.0-46.0) % Coagulation 05/03/21 Range/Units 08:17 INR 1.2 H (<1.2) Result Diagrams: 05/03/21 08:17 05/04/21 06:56 Assessment and Plan (1) Osteoarthritis of right knee Current Visit: Yes Status: Acute Code(s): M17.11 - UNILATERAL PRIMARY OSTEOARTHRITIS, RIGHT KNEE SNOMED Code(s): 099615745797706 (2) Effusion of right knee joint Current Visit: Yes Status: Acute Code(s): M25.461 - EFFUSION, RIGHT KNEE SNOMED Code(s): 778847070963335 Plan: 1.Procedure: Aspiration and cortisone injection of the right knee. The skin overlying the right knee was prepped with ChloraPrep. The right knee was anesthetized with 5 mL of 2% xyloocaine without epinephrine. An 18-gauge needle was then used to aspirate the right knee and 35 mL of hazy yellow fluid was obtained. Cortisone was then injected into the right knee. A clean dressing and an Ryan wrap were applied to the right knee. The patient tolerated the procedure well. 2. Recommend rest, ice, compression and elevation for the right lower extremity. 3. No surgical intervention is planned. Patient may follow up on an as-needed basis as an outpatient.
[2021-05-04 13:12] LABS: Ceruloplasmin 35.8 mg/dL (20.0-60.0)
[2021-05-04 14:20] VITALS: BP 113/60; PULSE 80; TEMP 98
== END 2021-05-04 17:35 | disposition home or self-care (01) | DRG 565 ==
LOC: EC 14:11 → 4SSUR 19:03
PROVIDERS: ADMIT Internal Medicine Geriatric Medicine; ATTEND Internal Medicine Geriatric Medicine
PROC: 3E0U33Z Introduction of Anti-inflammatory into Joints, Percutaneous Approach (ICD-10-PCS; principal; 2021-05-04)
DX: M25.461 Effusion, right knee (principal); B17.9 Acute viral hepatitis, unspecified; M17.11 Unilateral primary osteoarthritis, right knee; E78.5 Hyperlipidemia, unspecified; M06.9 Rheumatoid arthritis, unspecified; F03.90 Unspecified dementia, unspecified severity, without behavioral disturbance, psychotic disturbance, mood disturbance, and anxiety; F32.9 Major depressive disorder, single episode, unspecified; F17.200 Nicotine dependence, unspecified, uncomplicated; G89.29 Other chronic pain; T43.206A Underdosing of unspecified antidepressants, initial encounter; Z82.49 Family history of ischemic heart disease and other diseases of the circulatory system; Z90.710 Acquired absence of both cervix and uterus
CPT/HCPCS: 36415; 76705; 80053; 80074; 80143; 80299; 82105; 82150; 82390; 83516; 83690; 83735; 83880; 85025; 85027; 85610; 86038; 86645; 86665; 94760; 96361; 96374; 99285

== ENCOUNTER 2022-09-16 17:23 | Observation (INO) | payer MEDICARE ==
--- NOTE | 2022-09-16 17:43 | ED ---
General Adult HPI - General Chief complaint: Neuro Symptoms/Deficit Stated complaint: AMS,Slurred speech Time Seen by Provider: 09/16/22 17:32 Source: patient, family, RN notes reviewed Mode of arrival: ambulatory Limitations: no limitations - History of Present Illness Initial comments: Patient is a pleasant 77-year-old female with history of severe Alzheimer's presenting to emergency department with family with concern for speech problems. Onset of symptoms was 4:30, one hour prior to arrival. Family did witness this as they were eating dinner at the time. Patient had sudden onset of slurred speech that has persisted however during evaluation at this time they do agree it has returned to normal. Patient does complain of feeling dizzy which is difficult for her to describe. Nurse reports patient had difficulty with walking in triage. - Related Data Home Medications Medication Instructions Recorded Confirmed Donepezil [Aricept] 5 mg PO HS 09/16/22 09/16/22 Gabapentin 300 mg PO BID 09/16/22 09/16/22 traMADol HCL 50 - 100 mg PO Q8H PRN 09/16/22 09/16/22 Allergies Allergy/AdvReac Type Severity Reaction Status Date / Time No Known Allergies Allergy Verified 09/16/22 18:29 Review of Systems ROS Statement: Those systems with pertinent positive or pertinent negative responses have been documented in the HPI. ROS Other: All systems not noted in ROS Statement are negative. Constitutional: Denies: fever Eyes: Denies: eye pain ENT: Denies: ear pain Respiratory: Denies: cough Cardiovascular: Denies: chest pain Endocrine: Denies: fatigue Gastrointestinal: Denies: abdominal pain Genitourinary: Denies: dysuria Musculoskeletal: Denies: back pain Skin: Denies: rash Neurological: Reports: as per HPI Past Medical History Past Medical History: Dementia, Hyperlipidemia, Osteoarthritis (OA), Rheumatoid Arthritis (RA) History of Any Multi-Drug Resistant Organisms: None Reported Past Surgical History: Hysterectomy Past Anesthesia/Blood Transfusion Reactions: No Reported Reaction Past Psychological History: No Psychological Hx Reported Smoking Status: Former smoker Past Alcohol Use History: None Reported Past Drug Use History: None Reported - Past Family History Father Family Medical History: Coronary Artery Disease (CAD) Mother Family Medical History: Coronary Artery Disease (CAD), Myocardial Infarction ([place]) General Exam Limitations: no limitations General appearance: alert, in no apparent distress Head exam: Present: normocephalic Eye exam: Present: normal appearance, PERRL, EOMI ENT exam: Present: normal oropharynx Respiratory exam: Present: normal lung sounds bilaterally Cardiovascular Exam: Present: regular rate, normal rhythm GI/Abdominal exam: Present: soft. Absent: tenderness Extremities exam: Present: normal inspection Neurological exam: Present: alert, CN II-XII intact Expanded Neurological exam: Present: protecting the airway Patient oriented to: Present: person. Absent: place, time Speech: Present: fluid speech Cranial nerves: EOM's Intact: Normal, Facial Sensation: Normal Sensory exam: Upper Extremity Light Touch: Normal, Lower Extremity Light Touch: Normal Motor strength exam: RUE: 5 (Exam is slightly limited secondary to patient complains of chronic right shoulder pain.), LUE: 5, RLE: 5, LLE: 5 Eye Response: (4) open spontaneously Motor Response: (6) obeys commands Verbal Response: (4) confused conversation Psychiatric exam: Present: normal affect, normal mood Skin exam: Present: normal color Course Vital Signs 09/16/22 09/16/22 17:26 18:27 Temperature 97.9 F Pulse Rate 75 68 Respiratory 18 18 Rate Blood Pressure 139/62 128/80 O2 Sat by Pulse 96 97 Oximetry - Reevaluation(s) Reevaluation #1: 09/16/22 17:46 Patient is felt not to be a TPA candidate secondary to resolution of symptoms. Risks are felt to outweigh the benefits. Medical Decision Making - Medical Decision Making Patient reevaluated. Patient resting comfortably in bed. Patient and family are updated. Patient speech remains normal. Dr. Worthy has been paged for admission, covering Dr. Valentino. - Lab Data Result diagrams: 09/16/22 18:03 09/16/22 18:03 Lab Results 09/16/22 09/16/22 09/16/22 Range/Units 17:45 18:03 18:03 WBC 4.7 (3.8-10.6) k/uL RBC 4.81 (3.80-5.40) m/uL Hgb 12.1 (11.4-16.0) gm/dL Hct 38.1 (34.0-46.0) % MCV 79.2 L (80.0-100.0) fL MCH 25.2 (25.0-35.0) pg MCHC 31.8 (31.0-37.0) g/dL RDW 15.1 (11.5-15.5) % Plt Count 309 (150-450) k/uL MPV 7.4 Neutrophils % 47 % Lymphocytes % 38 % Monocytes % 6 % Eosinophils % 5 % Basophils % 1 % Neutrophils # 2.2 (1.3-7.7) k/uL Lymphocytes # 1.8 (1.0-4.8) k/uL Monocytes # 0.3 (0-1.0) k/uL Eosinophils # 0.3 (0-0.7) k/uL Basophils # 0.0 (0-0.2) k/uL Hypochromasia Moderate PT 10.2 (9.0-12.0) sec INR 0.9 (<1.2) APTT 23.9 (22.0-30.0) sec Sodium (137-145) mmol/L Potassium (3.5-5.1) mmol/L Chloride (98-107) mmol/L Carbon Dioxide (22-30) mmol/L Anion Gap mmol/L BUN (7-17) mg/dL Creatinine (0.52-1.04) mg/dL Est GFR (CKD-EPI)AfAm (>60 ml/min/1.73 sqM) Est GFR (CKD-EPI)NonAf (>60 ml/min/1.73 sqM) Glucose (74-99) mg/dL POC Glucose (mg/dL) 102 (70-110) mg/dL POC Glu [employer] Renny Ascencio Calcium (8.4-10.2) mg/dL Total Bilirubin (0.2-1.3) mg/dL AST (14-36) U/L ALT (4-34) U/L Alkaline Phosphatase (38-126) U/L Troponin I (0.000-0.034) ng/mL Total Protein (6.3-8.2) g/dL Albumin (3.5-5.0) g/dL 09/16/22 09/16/22 Range/Units 18:03 18:03 WBC (3.8-10.6) k/uL RBC (3.80-5.40) m/uL Hgb (11.4-16.0) gm/dL Hct (34.0-46.0) % MCV (80.0-100.0) fL MCH (25.0-35.0) pg MCHC (31.0-37.0) g/dL RDW (11.5-15.5) % Plt Count (150-450) k/uL MPV Neutrophils % % Lymphocytes % % Monocytes % % Eosinophils % % Basophils % % Neutrophils # (1.3-7.7) k/uL Lymphocytes # (1.0-4.8) k/uL Monocytes # (0-1.0) k/uL Eosinophils # (0-0.7) k/uL Basophils # (0-0.2) k/uL Hypochromasia PT (9.0-12.0) sec INR (<1.2) APTT (22.0-30.0) sec Sodium 139 (137-145) mmol/L Potassium 3.9 (3.5-5.1) mmol/L Chloride 104 (98-107) mmol/L Carbon Dioxide 29 (22-30) mmol/L Anion Gap 6 mmol/L BUN 15 (7-17) mg/dL Creatinine 0.70 (0.52-1.04) mg/dL Est GFR (CKD-EPI)AfAm >90 (>60 ml/min/1.73 sqM) Est GFR (CKD-EPI)NonAf 83 (>60 ml/min/1.73 sqM) Glucose 106 H (74-99) mg/dL POC Glucose (mg/dL) (70-110) mg/dL POC Glu [employer] ID Calcium 9.1 (8.4-10.2) mg/dL Total Bilirubin 0.2 (0.2-1.3) mg/dL AST 19 (14-36) U/L ALT 12 (4-34) U/L Alkaline Phosphatase 74 (38-126) U/L Troponin I <0.012 (0.000-0.034) ng/mL Total Protein 6.9 (6.3-8.2) g/dL Albumin 3.9 (3.5-5.0) g/dL - Radiology Data Radiology results: report reviewed (Computed tomography scan of the brain shows atrophy. No acute process) Interpreted by me: Two-view chest x-ray shows no acute process Disposition Clinical Impression: Transient cerebral ischemia Disposition: ADMITTED IP TO THIS HOSP Is patient prescribed a controlled substance at d/c from ED?: No Referrals: Brant Valentino DO [Primary Care Provider] - 1-2 days Time of Disposition: 18:44
[2022-09-16] MEDS ORDERED: MECLIZINE 12.5 MG TAB PO STA (17:46)
[2022-09-16 17:47] LABS: Glucose,Whole Blood 102 mg/dL (70-110)
--- NOTE | 2022-09-16 18:05 | CT ---
EXAMINATION TYPE: CT brain wo con for TPA DATE OF EXAM: 09/16/2022 COMPARISON: None HISTORY: slurred speech CT DLP: 1119.6 mGycm Automated exposure control for dose reduction was used. Images of the brain obtained with no contrast. There is cerebral cortical atrophy. There is no mass effect or midline shift. No sign of intracranial hemorrhage. Calvarium is intact. There is normal aeration of the mastoid sinuses. IMPRESSION: Cerebral atrophy. No acute intracranial abnormality. Mild chronic small vessel ischemia.
[2022-09-16 18:08] LABS: Basophils % (A) 1 %; Eosinophils # (A) 0.3 k/uL (0-0.7); Eosinophils % (A) 5 %; HCT 38.1 % (34.0-46.0); HGB 12.1 gm/dL (11.4-16.0); Hypochromasia Moderate; Lymphocytes # (A) 1.8 k/uL (1.0-4.8); Lymphocytes % (A) 38 %; MCH 25.2 pg (25.0-35.0); MCHC 31.8 g/dL (31.0-37.0); MCV 79.2 fL (80.0-100.0); Mean Platelet Volume 7.4; Monocytes # (A) 0.3 k/uL (0-1.0); Monocytes % (A) 6 %; Neutrophils # (A) 2.2 k/uL (1.3-7.7); Neutrophils % (A) 47 %; Platelet Count 309 k/uL (150-450); RBC 4.81 m/uL (3.80-5.40); RDW 15.1 % (11.5-15.5); WBC 4.7 k/uL (3.8-10.6)
[2022-09-16 18:15] LABS: INR 0.9 (<1.2); Partial Thromboplastin Time 23.9 sec (22.0-30.0); Prothrombin Time 10.2 sec (9.0-12.0)
[2022-09-16 18:22] LABS: ALT 12 U/L (4-34); AST 19 U/L (14-36); African American GFR (CKD) >90 (>60 ml/min/1.73 sqM); Albumin 3.9 g/dL (3.5-5.0); Alkaline Phosphatase 74 U/L (38-126); Anion Gap 6 mmol/L; Blood Urea Nitrogen 15 mg/dL (7-17); Calcium 9.1 mg/dL (8.4-10.2); Carbon Dioxide 29 mmol/L (22-30); Chloride 104 mmol/L (98-107); Glucose 106 mg/dL (74-99); Non-African American GFR(CKD) 83 (>60 ml/min/1.73 sqM); Potassium 3.9 mmol/L (3.5-5.1); Sodium 139 mmol/L (137-145); Total Bilirubin 0.2 mg/dL (0.2-1.3); Total Protein 6.9 g/dL (6.3-8.2)
[2022-09-16] MEDS ORDERED: ASPIRIN 325 MG TAB PO STA (18:44)
--- NOTE | 2022-09-16 18:46 | CT ---
EXAMINATION TYPE: CT angio head neck DATE OF EXAM: 09/16/2022 COMPARISON: 3 views HISTORY: slurred speech CT DLP: 321.2 mGycm Automated exposure control for dose reduction was used. CONTRAST: Performed with IV Contrast, patient injected with 65 mL of Isovue 370. Images obtained from the aortic arch to the vertex of the brain with the IV contrast. There are Three -D postprocessed images. There is atheromatous changes in the aortic arch. There is normal branching pattern of the great vess els on the aortic arch. There is bilateral arterial flow in the subclavian arteries. There is arteria l flow in the common internal and external carotid arteries bilaterally. There is some plaque formati on at the carotid artery bifurcations and less than 20% stenosis at the proximal internal carotid art eries bilaterally. Air is arterial flow in both vertebral arteries. There is arterial flow in the micky tebral basilar artery system. No evidence of carotid or vertebral artery aneurysm or dissection. There is arterial flow in the anterior middle and posterior cerebral arteries bilaterally. No eviden ce of intracranial aneurysm. There is 10 mm area of extra-axial calcification at the left lateral fro ntal lobe convexity and could be old calcified meningioma. There is normal enhancement of the venous sinuses. No evidence of intracranial hemodynamic arterial stenosis. No mass effect. No evidence of ne ovascularity. IMPRESSION: Minimal plaque at the carotid artery bifurcations. No evidence of hemodynamic stenosis. No significant intracranial angiographic abnormality. Extra-axial benign calcification that could be a meningioma at the left lateral frontal lobe convexity.
--- NOTE | 2022-09-16 18:49 | XR ---
EXAMINATION TYPE: XR chest 2V DATE OF EXAM: 09/16/2022 COMPARISON: 10/28/2011 HISTORY: Altered mental status TECHNIQUE: 2 views FINDINGS: Heart is normal. There is some coarsening of interstitial markings in the upper lobes. Lowe r lung villagomez are clear. No heart failure. There are no hilar masses. IMPRESSION: Mild pulmonary fibrotic changes which are increased compared to old exam. Normal heart. N o heart failure.
[2022-09-16] MEDS: SODIUM CHLORIDE 0.9% 1,000 ML IV SCH (19:18)
[2022-09-16] MEDS ORDERED: traMADol 50 MG TAB PO PRN (19:56)
[2022-09-16] MEDS: ENOXAPARIN 40 MG/0.4 ML SYRINGE SQ SCH (20:51)
[2022-09-16] MEDS: GABAPENTIN 300 MG CAP PO SCH (20:51)
[2022-09-16] MEDS: DONEPEZIL 5 MG TAB PO SCH (20:51)
[2022-09-17] MEDS: SODIUM CHLORIDE 0.9% 1,000 ML IV SCH (06:23)
[2022-09-17] MEDS ORDERED: ASPIRIN 325 MG TAB PO SCH (09:00)
[2022-09-17] MEDS: GABAPENTIN 300 MG CAP PO SCH ×2 (09:27→20:06)
[2022-09-17] MEDS: ENOXAPARIN 40 MG/0.4 ML SYRINGE SQ SCH (09:27)
[2022-09-17 11:51] LABS: Chol/HDL Ratio 2.38 Ratio; LDL Cholesterol,Calculated 117.9 mg/dL (0.0-131.0); VLDL Calculation 13.04 mg/dL (5.00-40.00)
[2022-09-17] MEDS ORDERED: ONDANSETRON 4 MG/2 ML VIAL IVP PRN (12:01)
[2022-09-17] MEDS ORDERED: LACTULOSE 20 GM/30 ML CUP PO PRN (12:01)
[2022-09-17] MEDS ORDERED: MELATONIN 3 MG TABLET PO PRN (12:01)
[2022-09-17] MEDS ORDERED: NALOXONE 0.4 MG/ML 1 ML VIAL IV PRN (12:01)
[2022-09-17] MEDS ORDERED: ACETAMINOPHEN TAB 325 MG TAB PO PRN (12:01)
[2022-09-17] MEDS ORDERED: CALCIUM CARBONATE 500 MG CHEWABLE PO PRN (12:01)
[2022-09-17] MEDS: CLOPIDOGREL 75 MG TAB PO SCH (13:15)
--- NOTE | 2022-09-17 13:55 | P.CNNES ---
History of Present Illness Consult date: 09/17/22 Requesting physician: Dio Ta Reason for Consult: TIA History of Present Illness: Patient is a 77-year-old right-handed female came to the hospital yesterday at 5:23 PM for episode of dizziness, lightheadedness and slurred speech. Patient yesterday morning was doing well. She had just completed her giving di nn at around 5 PM, when she started complaining that she was feeling dizzy, lightheaded as if she was floating and falling, like she will pass out. There was no spinning sensation. Patient also had slight slurred speech but there was no facial droop or any focal weakness or numbness of the extremities. Vital signs arrival blood pressure 139/62 pulse rate 75 temperature 97.9. Blood test shows normal CBC, PT/PTT, normal CMP. Troponin negative. CT head reported cerebral atrophy, no acute intracranial abnormality. Mild chronic small vessel ischemia. CTA of head and neck revealed minimal plaque at the carotid artery bifurcations. No evidence of hemodynamic stenosis. No significant intracranial angiographic abnormality. Extra-axial benign calcification that could be a meningioma in the left lateral frontal lobe convexity. EKG shows sinus rhythm. Chest x-ray revealed mild pulmonary fibrotic changes which are increased compared to old exam from 10/28/2011. Normal heart. No heart failure. Patient's home medications tramadol, gabapentin 300 mg twice a day and donepezil 5 mg at bedtime. She does not take any antiplatelet medication at home. No previous history of strokes or TIA. No previous history of hypertension, diabetes. She has smoked 1 pack per day for 40 years, quit 15 years ago. She was a light drinker, which she quit also 15 years ago. Patient at present still feels slightly lightheaded and patient's family believes that her speech is almost back to normal, resolved in around one hour. Patient was evaluate by ED staff, and she was not a candidate for TPA as her symptoms have resolved. Patient was given aspirin 325 mg in the ER. Review of Systems Constitutional: Denies chills, Denies fever Eyes: denies blurred vision, denies pain Ears: bilateral: decreased hearing, deny: ear discharge Ears, nose, mouth and throat: Denies headache, Denies sore throat Cardiovascular: Denies chest pain, Denies shortness of breath Respiratory: Denies cough Gastrointestinal: Denies abdominal pain, Denies diarrhea, Denies nausea, Denies vomiting Genitourinary: Denies dysuria, Denies hematuria Musculoskeletal: Reports myalgias, Denies neck pain Integumentary: Denies pruritus, Denies rash Neurological: Reports as per HPI Psychiatric: Denies anxiety, Denies depression Endocrine: Denies fatigue, Denies weight change Past Medical History Past Medical History: Dementia, Hyperlipidemia, Osteoarthritis (OA), Rheumatoid Arthritis (RA) History of Any Multi-Drug Resistant Organisms: None Reported Past Surgical History: Hysterectomy Past Anesthesia/Blood Transfusion Reactions: No Reported Reaction Past Psychological History: No Psychological Hx Reported Smoking Status: Former smoker Past Alcohol Use History: None Reported Past Drug Use History: None Reported - Past Family History Father Family Medical History: Coronary Artery Disease (CAD) Mother Family Medical History: Coronary Artery Disease (CAD), Myocardial Infarction (ID) Medications and Allergies Home Medications Medication Instructions Recorded Confirmed Type Donepezil [Aricept] 5 mg PO HS 09/16/22 09/16/22 History Gabapentin 300 mg PO BID 09/16/22 09/16/22 History traMADol HCL 50 - 100 mg PO Q8H PRN 09/16/22 09/16/22 History Allergies Allergy/AdvReac Type Severity Reaction Status Date / Time No Known Allergies Allergy Verified 09/16/22 18:29 Physical Examination - Vital Signs Vital Signs: Vital Signs Temp Pulse Pulse Resp BP BP BP 09/17/22 07:00 97.8 F 60 16 138/72 09/17/22 02:23 97.3 F L 63 17 152/63 09/16/22 20:53 97.9 F 64 19 126/63 09/16/22 19:33 130/69 09/16/22 19:20 98 F 68 16 128/60 09/16/22 18:27 68 18 128/80 09/16/22 17:26 97.9 F 75 18 139/62 Pulse Ox 09/17/22 07:00 98 09/17/22 02:23 98 09/16/22 20:53 98 09/16/22 19:33 09/16/22 19:20 98 09/16/22 18:27 97 09/16/22 17:26 96 Intake and Output 09/16/22 09/17/22 09/17/22 22:59 06:59 14:59 Intake Total 118 Balance 118 Intake: Oral 118 Other: Voiding Method Toilet # Voids 1 1 1 Weight 46.266 kg Patient is an elderly female, in no acute distress. Patient is alert awake. Patient has slow mentation, prolonged latency to answer any question. She is hard of hearing. Speech and language functions are normal. Patient can name and repeat very well. She was able to name knuckles, ear and button and can repeat well. No aphasia, although she may have very mild dysarthria. Attention, concentration and fund of knowledge is limited. On cranial nerve examination, pupils are equal, round and reacting to light, visual villagomez are full on confrontation, with no neglect on double simultaneous stimulation. Extraocular muscles are intact with no nystagmus. Patient has subtle right facial asymmetry. Her tongue protrudes to the midline. Palatal elevation and sensation normal, hearing is at least moderately decreased, which is chronic and shoulder shrug normal, facial sensation normal. On muscle strength testing, there mild right pronation, but she has chronic issues with the right shoulder. The muscle strength otherwise is normal in arms and legs distally and proximally. Right shoulder not checked because of pain. Deep tendon reflexes are symmetric 1+ and plantars downgoing. Sensory to touch is equal with no neglect on double simultaneous stimulation. Cerebellar function showed no ataxia for [id number] testing. No dysdiadochokinesia. Possible mild ataxia for xchm-sy-[id number] testing only on the right side. Tone and bulk of muscles normal. Gait deferred.. On general examination, there is no carotid bruit or murmur, S1-S2 audible. Chest is clear on consultation. Abdomen is soft nontender. No organomegaly, bowel sounds present. Peripheral pulses are present. No edema. Results - Laboratory Findings CBC and BMP: 09/16/22 18:03 09/16/22 18:03 Abnormal Lab Findings: Abnormal Labs 09/16/22 09/16/22 18:03 18:03 MCV 79.2 L Glucose 106 H Assessment and Plan Assessment: * Probable acute ischemic stroke versus TIA. Patient's NIH stroke scale is 1. * X tobacco use * Hyperlipidemia Plan: * MRI of the brain evaluate for an acute stroke * 2-D echo to rule out embolic source * CTA of head and neck revealed minimal plaque at the carotid artery bifurcations. No evidence of hemodynamic stenosis. No significant i ntracranial angiographic abnormality. Extra-axial benign calcification that could be a meningioma in the left lateral frontal lobe convexity. * Fasting lipid panel with cholesterol 226, LDL 117, HDL 95 and triglycerides 65. Agree with starting Lipitor 20 mg daily. Patient was not on statins at home. * Hemoglobin A1c * Agree with starting dual antiplatelet medication with aspirin 81 mg and Plavix 75 mg for 21 days. Thereafter stop Plavix and continue aspirin indefinitely. * Telemetry monitoring * Permissive hypertension for 24 hours. * PT OT, speech therapy * DVT prophylaxis: Patient on Lovenox 40 mg subcutaneously daily
--- NOTE | 2022-09-17 18:21 | P.HPIM ---
History of Present Illness H&P Date: 09/17/22 Chief Complaint: Slurred speech This is a pleasant 77-year-old patient, follows with Dr. Valentino. Patient is accompanied by HER-2 sons and [id number]. Chronic stable medical conditions include cognitive impairment, hyperlipidemia, rheumatoid arthritis,. Patient does live alone. Yesterday on 5 PM the [id number] noted that patient was sitting and was seemingly as if about to pass out. Some speech became slurred. Patient's other son then took the patient back to her house. Underwent another house and felt as a patient was about to fade out. Speech was off. They decided then called the ambulance. Subsequently patient's symptoms have improved. Patient does feel a bit tired. No change in vision. No change in swallowing. No focal weakness. No prior history of TIA or stroke. Review of systems: GEN.: Tired EYES: None HEENT: Decreased hearing NECK: None RESPIRATORY: None CARDIOVASCULAR: None GASTROINTESTINAL: None GENITOURINARY: None MUSCULOSKELETAL: Joint pains LYMPHATICS: None HEMATOLOGICAL: None PSYCHIATRY: Forgetful NEUROLOGICAL: As above Past medical history to include: Cognitive impairment, hyperlipidemia, osteoarthritis, rheumatoid arthritis Social history: Patient smoked about a pack a day for close to 48 years stopped about 15 years ago. Alcohol occasionally. Lives alone. Physical examination: VITAL SIGNS: 97.8, 60, 16, 138/72, 98% room air] GENERAL: BMI 19.9, reclining bed, awake, comfortable,. EYES: Pupils equal. Conjunctiva normal. HEENT: External appearance of nose and ears normal, oral cavity grossly normal. NECK: JVD not raised; masses not palpable. HEART: First and second heart sounds are normal; no edema. LUNGS: Respiratory rate normal; clear to auscultation. ABDOMEN: Soft, nontender, liver spleen not palpable, no masses palpable. PSYCH: Able tonsil simple questions, more affect normall. MUSCULOSKELETAL:No Clubbing/cyanosis;muscles-grossly intact, evidence of severe OA/RA NEUROLOGICAL: Cranial nerves grossly intact; does some flattening of the right nasolabial fold., power and sensation grossly intact. LYMPHATICS: No lymph nodes palpable in the axilla and neck INVESTIGATIONS, reviewed in the clinical context: White count 4.7 hemoglobin 12.1 platelets 309 potassium 3.9 creatinine 0.70 LDL 117 EKG tracing personally reviewed by -normal sinus rhythm. Nonspecific ST/T- wave changes. CT brain: Cerebral atrophy. CT angiography of the brain and neck: Unremarkable Chest x-ray film personally reviewed by me-hyperinflation. Probable fibrotic changes Assessment and plan: -Acute stroke versus TIA. Initial computed tomography scan unremarkable. We will need MRI of the brain. Neuro checks. Neurology consultation. Aspirin Plavix. Lipitor. -Emphysema ex-smoker, asymptomatic -Pulmonary fibrosis, asymptomatic -Peripheral neuropathy Gabapentin -Cognitive impairment Aricept -Primary osteoarthritis, rheumatoid arthritis chronic Ultram as needed -Full code Aspirin, Plavix, Lipitor. Neuro checks. Neurology consult. Resume home medications. MRI of the brain. 2-D echocardiogram. Care was discussed with the patient and the family at the bedside. Questions answered. Past Medical History Past Medical History: Dementia, Hyperlipidemia, Osteoarthritis (OA), Rheumatoid Arthritis (RA) History of Any Multi-Drug Resistant Organisms: None Reported Past Surgical History: Hysterectomy Past Anesthesia/Blood Transfusion Reactions: No Reported Reaction Past Psychological History: No Psychological Hx Reported Smoking Status: Former smoker Past Alcohol Use History: None Reported Past Drug Use History: None Reported - Past Family History Father Family Medical History: Coronary Artery Disease (CAD) Mother Family Medical History: Coronary Artery Disease (CAD), Myocardial Infarction (CT) Medications and Allergies Home Medications Medication Instructions Recorded Confirmed Type Donepezil [Aricept] 5 mg PO HS 09/16/22 09/16/22 History Gabapentin 300 mg PO BID 09/16/22 09/16/22 History traMADol HCL 50 - 100 mg PO Q8H PRN 09/16/22 09/16/22 History Allergies Allergy/AdvReac Type Severity Reaction Status Date / Time No Known Allergies Allergy Verified 09/16/22 18:29 Physical Exam Vitals: Vital Signs Temp Pulse Pulse Resp BP BP BP 09/17/22 15:00 98.1 F 69 18 124/63 09/17/22 07:00 97.8 F 60 16 138/72 09/17/22 02:23 97.3 F L 63 17 152/63 09/16/22 20:53 97.9 F 64 19 126/63 09/16/22 19:33 130/69 09/16/22 19:20 98 F 68 16 128/60 09/16/22 18:27 68 18 128/80 Pulse Ox 09/17/22 15:00 96 09/17/22 07:00 98 09/17/22 02:23 98 09/16/22 20:53 98 09/16/22 19:33 09/16/22 19:20 98 09/16/22 18:27 97 Intake and Output 09/17/22 09/17/22 09/17/22 06:59 14:59 22:59 Intake Total 836 Balance 836 Intake: Intake, IV Titration 600 Amount Sodium Chloride 0.9% 1, 600 000 ml @ 100 mls/hr IV . Q10H MALGORZATA Rx#:[id number] Oral 236 Other: # Voids 1 1 Results CBC & Chem 7: 09/16/22 18:03 09/16/22 18:03 Labs: Abnormal Lab Results - Last 24 Hours (Table) 09/16/22 09/16/22 09/16/22 Range/Units 10:03 18:03 18:03 MCV 79.2 L (80.0-100.0) fL Glucose 106 H (74-99) mg/dL Cholesterol 226.00 H (0.00-200.00) mg/dL HDL Cholesterol 95.10 H (40.00-60.00) mg/dL Thrombosis Risk Factor Assmnt - Choose All That Apply Each Risk Factor Represents 3 Points: Age 75 years or older Thrombosis Risk Factor Assessment Total Risk Factor Score: 3 Thrombosis Risk Factor Assessment Level: Moderate Risk
[2022-09-17] MEDS: DONEPEZIL 5 MG TAB PO SCH (20:06)
[2022-09-17] MEDS: ATORVASTATIN 20 MG TAB PO SCH (20:06)
[2022-09-18] MEDS: ENOXAPARIN 40 MG/0.4 ML SYRINGE SQ SCH (08:45)
[2022-09-18] MEDS: GABAPENTIN 300 MG CAP PO SCH ×2 (08:46→20:14)
[2022-09-18] MEDS: ASPIRIN 81 MG PO SCH (08:46)
[2022-09-18] MEDS: CLOPIDOGREL 75 MG TAB PO SCH (08:46)
[2022-09-18] MEDS: ATORVASTATIN 20 MG TAB PO SCH (20:14)
[2022-09-18] MEDS: DONEPEZIL 5 MG TAB PO SCH (20:14)
--- NOTE | 2022-09-18 20:20 | P.PN ---
Progress Note - Text Progress Note Date: 09/18/22 Chief Complaint: Slurred speech This is a pleasant 77-year-old patient, follows with Dr. Valentino. Patient is accompanied by HER-2 sons and [id number]. Chronic stable medical conditions include cognitive impairment, hyperlipidemia, rheumatoid arthritis,. Patient does live alone. Yesterday on 5 PM the [id number] noted that patient was sitting and was seemingly as if about to pass out. Some speech became slurred. Patient's other son then took the patient back to her house. Underwent another house and felt as a patient was about to fade out. Speech was off. They decided then called the ambulance. Subsequently patient's symptoms have improved. Patient does feel a bit tired. No change in vision. No change in swallowing. No focal weakness. No prior history of TIA or stroke. 09/18/2022. MRI cannot be done today. Has been scheduled for tomorrow. 2-D echocardiogram pending. Services not available and we can. Family at the bedside. Eating well. No new symptoms. Active Medications Acetaminophen (Acetaminophen Tab 325 Mg Tab) 650 mg PO Q6HR PRN PRN Reason: Mild Pain or Fever > 100.5 Aspirin (Aspirin 81 Mg) 81 mg PO DAILY [facility] Last Admin: 09/18/22 08:46 Dose: 81 mg Atorvastatin Calcium (Atorvastatin 20 Mg Tab) 20 mg PO HS [facility] Last Admin: 09/18/22 20:14 Dose: 20 mg Calcium Carbonate/Glycine (Calcium Carbonate 500 Mg Chewable) 1,000 mg PO Q4HR PRN PRN Reason: Dyspepsia Clopidogrel Bisulfate (Clopidogrel 75 Mg Tab) 75 mg PO DAILY [facility] Last Admin: 09/18/22 08:46 Dose: 75 mg Donepezil HCl (Donepezil 5 Mg Tab) 5 mg PO HS [facility] Last Admin: 09/18/22 20:14 Dose: 5 mg Enoxaparin Sodium (Enoxaparin 40 Mg/0.4 Ml Syringe) 40 mg SQ DAILY [facility] Last Admin: 09/18/22 08:45 Dose: 40 mg Gabapentin (Gabapentin 300 Mg Cap) 300 mg PO BID [facility] Last Admin: 09/18/22 20:14 Dose: 300 mg Lactulose (Lactulose 20 Gm/30 Ml Cup) 20 gm PO DAILY PRN PRN Reason: Constipation Melatonin (Melatonin 3 Mg Tablet) 3 mg PO HS PRN PRN Reason: Insomnia Naloxone HCl (Naloxone 0.4 Mg/Ml 1 Ml Vial) 0.2 mg IV Q2M PRN PRN Reason: Opioid Reversal Ondansetron HCl (Ondansetron 4 Mg/2 Ml Vial) 4 mg IVP Q8HR PRN PRN Reason: Nausea And Vomiting Tramadol HCl (Tramadol 50 Mg Tab) 50 - 100 mg PO Q8H PRN PRN Reason: Pain Past medical history to include: Cognitive impairment, hyperlipidemia, osteoarthritis, rheumatoid arthritis Social history: Patient smoked about a pack a day for close to 48 years stopped about 15 years ago. Alcohol occasionally. Lives alone. Physical examination: VITAL SIGNS: 98.1, 77, 18, 119/63, 97% room air GENERAL: reclining bed, awake, comfortable,. EYES: Pupils equal. Conjunctiva normal. HEENT: External appearance of nose and ears normal, oral cavity grossly normal. NECK: JVD not raised; masses not palpable. HEART: First and second heart sounds are normal; no edema. LUNGS: Respiratory rate normal; clear to auscultation. ABDOMEN: Soft, nontender, liver spleen not palpable, no masses palpable. PSYCH: Able tonsil simple questions, more affect normall. MUSCULOSKELETAL:No Clubbing/cyanosis;muscles-grossly intact, evidence of severe OA/RA NEUROLOGICAL: Cranial nerves grossly intact; does some flattening of the right nasolabial fold., power and sensation grossly intact. INVESTIGATIONS, reviewed in the clinical context: White count 4.7 hemoglobin 12.1 platelets 309 potassium 3.9 creatinine 0.70 LDL 117 EKG tracing personally reviewed by me-normal sinus rhythm. Nonspecific ST/T- wave changes. CT brain: Cerebral atrophy. CT angiography of the brain and neck: Unremarkable Chest x-ray film personally reviewed by me-hyperinflation. Probable fibrotic changes Assessment and plan: -Acute stroke versus TIA. Initial computed tomography scan unremarkable. Aspirin Plavix. Lipitor. Pending MRI -Emphysema ex-smoker, asymptomatic -Pulmonary fibrosis, asymptomatic -Peripheral neuropathy Gabapentin -Cognitive impairment Aricept -Primary osteoarthritis, rheumatoid arthritis chronic Ultram as needed -Full code Aspirin, Plavix, Lipitor. Pending MRI of the brain. 2-D echocardiogram. Care was discussed with the patient and the family at the bedside.
[2022-09-19 08:08] VITALS: BP 132/82; PULSE 67; RESP 14; TEMP 98.2
[2022-09-19] MEDS: ASPIRIN 81 MG PO SCH (09:08)
[2022-09-19] MEDS: CLOPIDOGREL 75 MG TAB PO SCH (09:08)
[2022-09-19] MEDS: ENOXAPARIN 40 MG/0.4 ML SYRINGE SQ SCH (09:09)
[2022-09-19] MEDS: GABAPENTIN 300 MG CAP PO SCH (09:09)
--- NOTE | 2022-09-19 09:18 | P.PN ---
Subjective Progress Note Date: 09/18/22 Patient was seen for a follow-up. Patient is laying comfortably in the bed. Offers no complaints. She says that she is talking better, she had some headache today, but no headache at this time. Denies any dizziness. Telemetry monitoring showing sinus rhythm with a heart rate in 77. Objective - Vital Signs Vital signs: Vital Signs Temp 98.1 F 09/18/22 13:13 Pulse 77 09/18/22 13:13 Resp 18 09/18/22 13:13 BP 119/63 09/18/22 13:13 Pulse Ox 97 09/18/22 13:13 FiO2 Intake & Output 09/17/22 09/18/22 09/18/22 18:59 06:59 18:59 Intake Total 954 236 Balance 954 236 Intake: Intake, IV Titration 600 Amount Sodium Chloride 0.9% 1, 600 000 ml @ 100 mls/hr IV . Q10H MALGORZATA Rx#:[id number] Oral 354 236 Other: Voiding Method Toilet # Voids 1 2 3 - Exam Patient's right facial droop appears to be better. Mentation has improved. Rest of the examination is unchanged. - Labs CBC & Chem 7: 09/16/22 18:03 09/16/22 18:03 Assessment and Plan Assessment: * Probable acute ischemic stroke versus TIA. Patient's NIH stroke scale is 1. * X tobacco use * Hyperlipidemia Plan: * Await MRI of the brain evaluate for an acute stroke * 2-D echo to rule out embolic source * CTA of head and neck revealed minimal plaque at the carotid artery bifurcations. No evidence of hemodynamic stenosis. No significant i ntracranial angiographic abnormality. Extra-axial benign calcification that could be a meningioma in the left lateral frontal lobe convexity. * Fasting lipid panel with cholesterol 226, LDL 117, HDL 95 and triglycerides 65. Agree with starting Lipitor 20 mg daily. Patient was not on statins at home. * Hemoglobin A1c 5.5 * Agree with starting dual antiplatelet medication with aspirin 81 mg and Plavix 75 mg for 21 days. Thereafter stop Plavix and continue aspirin indefinitely. * Telemetry monitoring showing sinus rhythm with heart rate 77. No arrhythmia * Permissive hypertension for 24 hours. * Check B12, folate. * PT OT, speech therapy * DVT prophylaxis: Patient on Lovenox 40 mg subcutaneously daily
--- NOTE | 2022-09-19 11:13 | MR ---
EXAMINATION TYPE: MR brain wo con DATE OF EXAM: 09/19/2022 COMPARISON: CT brain 09/16/2022 HISTORY: Neuro deficit, slurred speech, acute CVA CONTRAST: Performed utilizing 0 mL intravenous Gadavist gadolinium contrast. TECHNIQUE: Multiplanar, multiecho imaging on a 3.0 Clementine magnet is performed through the brain. Stud y is performed within 24 hours of arrival to the hospital. The craniovertebral junction is normal. The pituitary is normal. Diffusion-weighted imaging is performed. No abnormal hyperintensity is present to suggest an acute i ntracranial infarct or acute ischemic change. Periventricular white matter hyperintensity is present likely on the basis of chronic white matter is chemic change. There are additional punctate deep white matter changes slightly greater on the right. Findings are nonspecific but likely related to chronic white matter ischemic changes. Ventricles and sulci are prominent for the patient age. IMPRESSIONS: 1. No suspicious acute intracranial changes. 2. Chronic appearing periventricular and punctate deep white matter changes likely on the basis of ch ronic white matter ischemic change. Some age-related atrophy is present.
--- NOTE | 2022-09-19 12:33 | CA ---
Transthoracic Echo Report Name: Ale Whyte Age: 77 Gender: F : 1945 Exam Date: 09/19/2022 08:03 Exam Location: [facility] Ht (in): 60 Wt (lb): 102 Ordering Physician: Dio Ta DO Attending/Referring Phys: Print Shop Assistant Sandrita Camargo, CHRIS Procedure CPT: Indications: Thrombus Cardiac Hx: Technical Quality: Good Contrast 1: Total Dose (mL): Contrast 2: Total Dose (mL): MEASUREMENTS (Male / Female) Normal Values 2D ECHO LV Diastolic Diameter PLAX 4.6 cm 4.2 - 5.9 / 3.9 - 5.3 cm LV Systolic Diameter PLAX 3.3 cm IVS Diastolic Thickness 0.8 cm 0.6 - 1.0 / 0.6 - 0.9 cm LVPW Diastolic Thickness 0.8 cm 0.6 - 1.0 / 0.6 - 0.9 cm LV Relative Wall Thickness 0.3 RV Internal Dim ED PLAX 2.1 cm LA Systolic Diameter LX 3.1 cm 3.0 - 4.0 / 2.7 - 3.8 cm M-MODE Aortic Root Diameter MM 3.2 cm LA Systolic Diameter MM 2.4 cm LA Ao Ratio MM 0.7 MV E Point Septal Separation 0.6 cm AV Cusp Separation MM 2.1 cm DOPPLER MV Area PHT 4.0 cm??? Mitral E Point Velocity 62.9 cm/s Mitral A Point Velocity 76.3 cm/s Mitral E to A Ratio 0.8 MV Deceleration Time 188.0 ms MV E' Velocity 5.6 cm/s Mitral E to MV E' Ratio 11.2 TR Peak Velocity 222.6 cm/s TR Peak Gradient 19.8 mmHg Right Ventricular Systolic Press 24.8 mmHg FINDINGS Left Ventricle Normal left ventricular size, wall thickness, systolic function with no obvious regional wall motion abnormalities. Left ventricular ejection fraction is estimated at 50-55%. Right Ventricle The right ventricle is normal in size and function. Right ventricular systolic pressure within normal limits. Right Atrium The right atrium is normal in size. Left Atrium The left atrium is normal in size. Mitral Valve Structurally normal mitral valve without significant stenosis or prolapse. There is mild mitral regurgitation. Aortic Valve Structurally normal aortic valve without significant sclerosis or stenosis. There is no aortic regurgitation. Tricuspid Valve Structurally normal tricuspid valve without significant stenosis. Pulmonary artery systolic pressure is normal. Pulmonic Valve Structurally normal pulmonic valve without significant stenosis. There is no pulmonic regurgitation. Pericardium Normal pericardium without effusion. Aorta Normal aortic root dimension. CONCLUSIONS Normal LV systolic function with an ejection fraction between 50-55% Previewed by: Dr. Rafi Dowling MD (Electronically Signed) Final Date: 19 September 2022 12:32
--- NOTE | 2022-09-19 14:54 | P.DS ---
Providers Date of admission: 09/16/22 18:45 Expected date of discharge: 09/19/22 Attending physician: Krishna Worthy Consults: 09/16/22 18:46 Consult Physician Urgent Consulting Provider: Rikki Canada Consult Reason/Comments: tia Do you want consulting provider notified?: Yes Primary care physician: Brant [facility] Course: Chief Complaint: Slurred speech This is a pleasant 77-year-old patient, follows with Dr. Valentino. Patient is accompanied by HER-2 sons and [id number]. Chronic stable medical conditions include cognitive impairment, hyperlipidemia, rheumatoid arthritis,. Patient does live alone. Yesterday on 5 PM the [id number] noted that patient was sitting and was seemingly as if about to pass out. Some speech became slurred. Patient's other son then took the patient back to her house. Underwent another house and felt as a patient was about to fade out. Speech was off. They decided then called the ambulance. Subsequently patient's symptoms have improved. Patient does feel a bit tired. No change in vision. No change in swallowing. No focal weakness. No prior history of TIA or stroke. 09/18/2022. MRI cannot be done today. Has been scheduled for tomorrow. 2-D echocardiogram pending. Services not available and we can. Family at the bedside. Eating well. No new symptoms. 09/19/2022: MRi came back unremarkable. 2-D echocardiogram-unremarkable. Spoke to patient's 2 sons at the bedside. At this time patient need a more supervised setting. Has underlying cognitive impairment. Discussion and discharge planning more than 35 minutes Past medical history to include: Cognitive impairment, hyperlipidemia, osteoarthritis, rheumatoid arthritis Social history: Patient smoked about a pack a day for close to 48 years stopped about 15 years ago. Alcohol occasionally. Lives alone. Physical examination: VITAL SIGNS: 98.2, 67, 14, 132/82, 97% room air GENERAL: Sitting up in a chair, comfortable EYES: Pupils equal. Conjunctiva normal. HEENT: External appearance of nose and ears normal, oral cavity grossly normal. NECK: JVD not raised; masses not palpable. HEART: First and second heart sounds are normal; no edema. LUNGS: Respiratory rate normal; clear to auscultation. ABDOMEN: Soft, nontender, liver spleen not palpable, no masses palpable. PSYCH: Answering simple questions, mood affect normall. MUSCULOSKELETAL:No Clubbing/cyanosis;muscles-grossly intact, evidence of severe OA/RA NEUROLOGICAL: Cranial nerves grossly intact; does some flattening of the right nasolabial fold., power and sensation grossly intact. INVESTIGATIONS, reviewed in the clinical context: MRI brain: No strokes reported. Chronic changes 2-D echocardiogram: EF 50-55%. White count 4.7 hemoglobin 12.1 platelets 309 potassium 3.9 creatinine 0.70 LDL 117 EKG tracing personally reviewed by me-normal sinus rhythm. Nonspecific ST/T- wave changes. CT brain: Cerebral atrophy. CT angiography of the brain and neck: Unremarkable Chest x-ray film personally reviewed by me-hyperinflation. Probable fibrotic changes Assessment and plan: - TIA. Aspirin Plavix. Lipitor. MRI unremarkable -Emphysema ex-smoker, asymptomatic -Pulmonary fibrosis, asymptomatic -Peripheral neuropathy Gabapentin -Cognitive impairment Aricept -Primary osteoarthritis, rheumatoid arthritis chronic Ultram as needed -Full code -Patient's 2 sons are POA. Disposition: Home Plan - Discharge Summary New Discharge Prescriptions: New Atorvastatin [Lipitor] 20 mg PO HS #30 tab Aspirin 81 mg PO DAILY tab Clopidogrel [Plavix] 75 mg PO DAILY #100 tab Continue traMADol HCL 50 - 100 mg PO Q8H PRN PRN Reason: Pain Gabapentin 300 mg PO BID Donepezil [Aricept] 5 mg PO HS Discharge Medication List Donepezil [Aricept] 5 mg PO HS 09/16/22 [History] Gabapentin 300 mg PO BID 09/16/22 [History] traMADol HCL 50 - 100 mg PO Q8H PRN 09/16/22 [History] Aspirin 81 mg PO DAILY tab 09/19/22 [Rx] Atorvastatin [Lipitor] 20 mg PO HS #30 tab 09/19/22 [Rx] Clopidogrel [Plavix] 75 mg PO DAILY #100 tab 09/19/22 [Rx] Follow up Appointment(s)/Referral(s): Brant Valentino DO [Primary Care Provider] - 1-2 days Heather Mullen MD [Medical Doctor] - 2 Weeks (pt to call and schedule) Patient Instructions/Handouts: Transient Ischemic Attack (DC) Discharge Disposition: HOME SELF-CARE
== END 2022-09-19 13:43 | disposition home or self-care (01) ==
LOC: EC 17:23 → 6NMEDSUR 18:45
PROVIDERS: ADMIT Hospitalist; ATTEND Hospitalist
DX: G45.9 Transient cerebral ischemic attack, unspecified (principal); E78.5 Hyperlipidemia, unspecified; M06.9 Rheumatoid arthritis, unspecified; I70.0 Atherosclerosis of aorta; J43.9 Emphysema, unspecified; J84.10 Pulmonary fibrosis, unspecified; I34.0 Nonrheumatic mitral (valve) insufficiency; G62.9 Polyneuropathy, unspecified; H91.90 Unspecified hearing loss, unspecified ear; Z79.899 Other long term (current) drug therapy; Z90.710 Acquired absence of both cervix and uterus; Z87.891 Personal history of nicotine dependence; Z82.49 Family history of ischemic heart disease and other diseases of the circulatory system
CPT/HCPCS: 96360; 96361; 96372 ×4; 99285; 36415; 93005; 93306; 97116; 97530; 97161; 92523; 80061; 80053; 82607; 82746; 84484; 85025; 85610; 85730; 83036; 71046; 70496; 70450; 70498; 70551; G0378 ×4; J1650 ×4; Q9967

== ENCOUNTER 2022-11-04 13:12 | Emergency (ER) | payer MEDICARE ==
--- NOTE | 2022-11-04 13:45 | ED ---
Recheck HPI - General Source: patient Mode of arrival: wheelchair Limitations: no limitations - History of Present Illness MD Complaint: abnormal lab <Bettina Grover - Last Filed: 11/04/22 13:42> <Carlos Merrill - Last Filed: 11/04/22 20:52> - General Chief Complaint: Recheck/Abnormal Lab/Rx Stated Complaint: abnormal labs Time Seen by Provider: 11/04/22 13:22 - History of Present Illness Initial Comments: This is a 77-year-old female who presents to the emergency department for abnormal blood work. States that she saw her primary care provider today for 2- 3 weeks of poor balance and difficulty walking. Lab work was obtained and she was told that she had a low hemoglobin level. Her primary care provider subsequently instructed her to come to the emergency department. Denies any history of anemia or blood transfusions. Also denies any rectal bleeding or pain. Denies any fevers, chills, sore throat, cough, dyspnea, chest pain, palpitations, abdominal pain, nausea, vomiting, diarrhea, back pain, or headaches. (Bettina Grover) - Related Data Home Medications Medication Instructions Recorded Confirmed Donepezil [Aricept] 5 mg PO HS 09/16/22 11/04/22 Gabapentin 300 mg PO BID 09/16/22 11/04/22 traMADol HCL 50 - 100 mg PO Q8H PRN 09/16/22 11/04/22 Previous Rx's Medication Instructions Recorded Aspirin 81 mg PO DAILY tab 09/19/22 Atorvastatin [Lipitor] 20 mg PO HS #30 tab 09/19/22 Clopidogrel [Plavix] 75 mg PO DAILY #100 tab 09/19/22 Allergies Allergy/AdvReac Type Severity Reaction Status Date / Time codeine Allergy Rash/Hives Verified 11/04/22 18:10 Review of Systems ROS Other: All systems not noted in ROS Statement are negative. <Bettina Grover - Last Filed: 11/04/22 13:42> ROS Other: All systems not noted in ROS Statement are negative. <Carlos Merrill - Last Filed: 11/04/22 20:52> ROS Statement: Those systems with pertinent positive or pertinent negative responses have been documented in the HPI. Past Medical History Past Medical History: Dementia, Hyperlipidemia, Osteoarthritis (OA), Rheumatoid Arthritis (RA) History of Any Multi-Drug Resistant Organisms: None Reported Past Surgical History: Hysterectomy Past Anesthesia/Blood Transfusion Reactions: No Reported Reaction Past Psychological History: No Psychological Hx Reported Smoking Status: Former smoker Past Alcohol Use History: None Reported Past Drug Use History: None Reported - Past Family History Father Family Medical History: Coronary Artery Disease (CAD) Mother Family Medical History: Coronary Artery Disease (CAD), Myocardial Infarction (OK) <Bettina Grover Filed: 11/04/22 13:42> General Exam Limitations: no limitations General appearance: alert, in no apparent distress Head exam: Present: atraumatic, normocephalic, normal inspection Respiratory exam: Present: normal lung sounds bilaterally. Absent: respiratory distress, wheezes, rales, rhonchi, stridor Cardiovascular Exam: Present: regular rate, normal rhythm, normal heart sounds. Absent: systolic murmur, diastolic murmur, rubs, gallop, clicks Neurological exam: Present: alert Skin exam: Present: pallor <Bettina Grover Filed: 11/04/22 13:42> Course Vital Signs 11/04/22 11/04/22 11/04/22 13:17 14:12 15:35 Temperature 98.1 F Pulse Rate 84 65 67 Respiratory 18 17 16 Rate Blood Pressure 113/48 115/67 116/65 O2 Sat by Pulse 97 100 100 Oximetry 11/04/22 11/04/22 11/04/22 17:41 18:02 18:13 Temperature 98.1 F 98.4 F Pulse Rate 63 74 60 Respiratory 18 18 16 Rate Blood Pressure 134/72 141/67 134/64 O2 Sat by Pulse 100 100 Oximetry 11/04/22 11/04/22 11/04/22 18:32 18:33 19:01 Temperature 98.4 F 98.3 F Pulse Rate 68 66 70 Respiratory 18 16 7 L Rate Blood Pressure 131/62 131/62 132/62 O2 Sat by Pulse 98 100 99 Oximetry 11/04/22 11/04/22 11/04/22 19:10 19:20 19:30 Temperature Pulse Rate 70 74 75 Respiratory 18 16 18 Rate Blood Pressure 118/74 130/68 132/73 O2 Sat by Pulse 100 100 98 Oximetry Medical Decision Making <Bettina Grover Filed: 11/04/22 13:42> - Lab Data Result diagrams: 11/04/22 13:53 11/04/22 19:00 <Carlos Merrill - Last Filed: 11/04/22 20:52> - Medical Decision Making This is a 77-year-old female who presents emergency department for low hemoglobin. Was pt. sent in by a medical professional or institution? @ -Yes, her PCP Did you speak to anyone other than the patient for history? @ -Her son Did you review nursing and triage notes? @ -Agree, accurate with regards to the patient's symptoms. Were old charts reviewed? @ -No Differential Diagnosis? @ -Alpha thalassemia, aplastic anemia, hemolytic anemia, iron deficiency anemia, acute blood loss anemia, pernicious anemia, low LDL cholesterol, megaloblastic anemia, B12 deficiency, folate deficiency, GI bleed, this is not meant to be an all-inclusive list. EKG interpreted by me (3pts min.)? @ -[none] X-rays interpreted by me (1pt min.)? @ -[none] CT interpreted by me (1pt min.)? @ -[none] U/S interpreted by me (1pt. min.)? @ -[none] What testing was considered but not performed? (CT, X-rays, U/S, labs)? Why? @ [CT, X-rays, U/S, labs? Why?] What meds were considered but not given? Why? @ -[none] Did you discuss the management of the patient with other professionals? @ -No Did you reconcile home meds? @ -No Was smoking cessation discussed for >3mins.? @ -No Was critical care preformed (if so, how long)? @ -No Were there social determinants of health that impacted care today? How? (Homelessness, low income, unemployed, alcoholism, drug addiction, transportation, low edu. Level, literacy, decrease access to med. care, retirement, rehab)? @ -No Was there de-escalation of care discussed even if they declined? (Discuss DNR or withdrawal of care, Hospice)? @ -No What co-morbidities impacted this encounter? (DM, HTN, Smoking, COPD, CAD, Cancer, CVA, Hep., AIDS, mental health diagnosis, sleep apnea, morbid obesity)? @ -[DM, HTN, Smoking, COPD, CAD, Cancer, CVA, Hep., AIDS, mental health diagnosis, sleep apnea, morbid obesity?] Was patient admitted / discharged? @ -[hospital course] Drug Therapy requiring intensive monitoring for toxicity (Heparin, Nitro, Insulin, Cardizem)? @ -None Were any procedures done? @ -None Diagnosis/symptom? @ -[default] Acute, or Chronic, or Acute on Chronic? @ -[default] Uncomplicated (without systemic symptoms) or Complicated (systemic symptoms)? @ -[default] Side effects of treatment? @ -[none] Exacerbation, Progression, or Severe Exacerbation] @ -Not applicable Poses a threat to life or bodily function? @ -[no] (Bettina Grover) Patient is signed out to me by previous shift physician computer assistant, Lynne Grover. Briefly patient's 69-year-old female presents emergency department for symptomatically anemia. Plan at sign out was to follow-up with pending labs and evaluate patient after blood transfusion. Patient reevaluated bedside 8:15 p.m. found to be in stable condition. Patient is well-appearing denies any symptoms of GI bleed. She is strongly encouraged to follow closely with her primary care doctor. (Carlos Merrill) - Lab Data Lab Results 11/04/22 11/04/22 11/04/22 Range/Units 13:53 13:53 13:53 WBC 4.6 (3.8-10.6) k/uL RBC 3.30 L (3.80-5.40) m/uL Hgb 7.5 L D (11.4-16.0) gm/dL Hct 24.8 L (34.0-46.0) % MCV 75.2 L (80.0-100.0) fL MCH 22.7 L (25.0-35.0) pg MCHC 30.2 L (31.0-37.0) g/dL RDW 14.9 (11.5-15.5) % Plt Count 425 (150-450) k/uL MPV 6.8 Neutrophils % 50 % Lymphocytes % 36 % Monocytes % 7 % Eosinophils % 4 % Basophils % 1 % Neutrophils # 2.3 (1.3-7.7) k/uL Lymphocytes # 1.7 (1.0-4.8) k/uL Monocytes # 0.3 (0-1.0) k/uL Eosinophils # 0.2 (0-0.7) k/uL Basophils # 0.0 (0-0.2) k/uL Hypochromasia Marked Poikilocytosis Slight Microcytosis Slight PT 9.6 (9.0-12.0) sec INR 0.9 (<1.2) APTT 22.3 (22.0-30.0) sec Sodium (137-145) mmol/L Potassium (3.5-5.1) mmol/L Chloride (98-107) mmol/L Carbon Dioxide (22-30) mmol/L Anion Gap mmol/L BUN (7-17) mg/dL Creatinine (0.52-1.04) mg/dL Est GFR (CKD-EPI)AfAm (>60 ml/min/1.73 sqM) Est GFR (CKD-EPI)NonAf (>60 ml/min/1.73 sqM) Glucose (74-99) mg/dL Calcium (8.4-10.2) mg/dL Total Bilirubin (0.2-1.3) mg/dL AST (14-36) U/L ALT (4-34) U/L Alkaline Phosphatase (38-126) U/L Total Protein (6.3-8.2) g/dL Albumin (3.5-5.0) g/dL Stool Occult Blood Negative (Negative) Blood Type Blood Type Confirm Blood Type Recheck Bld Type Recheck Status Antibody Screen Crossmatch Spec Expiration Date 11/04/22 11/04/22 11/04/22 Range/Units 13:55 14:00 19:00 WBC (3.8-10.6) k/uL RBC (3.80-5.40) m/uL Hgb (11.4-16.0) gm/dL Hct (34.0-46.0) % MCV (80.0-100.0) fL MCH (25.0-35.0) pg MCHC (31.0-37.0) g/dL RDW (11.5-15.5) % Plt Count (150-450) k/uL MPV Neutrophils % % Lymphocytes % % Monocytes % % Eosinophils % % Basophils % % Neutrophils # (1.3-7.7) k/uL Lymphocytes # (1.0-4.8) k/uL Monocytes # (0-1.0) k/uL Eosinophils # (0-0.7) k/uL Basophils # (0-0.2) k/uL Hypochromasia Poikilocytosis Microcytosis PT (9.0-12.0) sec INR (<1.2) APTT (22.0-30.0) sec Sodium 139 (137-145) mmol/L Potassium 4.2 (3.5-5.1) mmol/L Chloride 107 (98-107) mmol/L Carbon Dioxide 29 (22-30) mmol/L Anion Gap 3 mmol/L BUN 15 (7-17) mg/dL Creatinine 0.61 (0.52-1.04) mg/dL Est GFR (CKD-EPI)AfAm >90 (>60 ml/min/1.73 sqM) Est GFR (CKD-EPI)NonAf 87 (>60 ml/min/1.73 sqM) Glucose 88 (74-99) mg/dL Calcium 8.5 (8.4-10.2) mg/dL Total Bilirubin 0.3 (0.2-1.3) mg/dL AST 22 (14-36) U/L ALT 13 (4-34) U/L Alkaline Phosphatase 68 (38-126) U/L Total Protein 6.3 (6.3-8.2) g/dL Albumin 3.4 L (3.5-5.0) g/dL Stool Occult Blood (Negative) Blood Type B Negative Blood Type Confirm B Negative Blood Type Recheck No Previous Record Bld Type Recheck Status CABO Indicated Antibody Screen NEGATIVE Crossmatch See Detail Spec Expiration Date 11/07/2022 - 2352 Disposition <Bettina Grover - Last Filed: 11/04/22 13:42> Is patient prescribed a controlled substance at d/c from ED?: No Time of Disposition: 20:19 <Carlos Merrill - Last Filed: 11/04/22 20:52> Clinical Impression: Symptomatic anemia Disposition: HOME SELF-CARE Condition: Fair Instructions (If sedation given, give patient instructions): Anemia (ED) Additional Instructions: Please seek medical attention for any worsening symptoms including dizziness, lightheadedness, weakness with exertional activities. So also important to be mindful of any signs of GI bleeding causing black or bloody stools. Referrals: Brant Valentino DO [Primary Care Provider] - 1-2 days
[2022-11-04 14:37] LABS: Basophils % (A) 1 %; Eosinophils # (A) 0.2 k/uL (0-0.7); Eosinophils % (A) 4 %; HCT 24.8 % (34.0-46.0); Hypochromasia Marked; Lymphocytes # (A) 1.7 k/uL (1.0-4.8); Lymphocytes % (A) 36 %; MCH 22.7 pg (25.0-35.0); MCHC 30.2 g/dL (31.0-37.0); MCV 75.2 fL (80.0-100.0); Mean Platelet Volume 6.8; Microcytosis Slight; Monocytes # (A) 0.3 k/uL (0-1.0); Monocytes % (A) 7 %; Neutrophils # (A) 2.3 k/uL (1.3-7.7); Neutrophils % (A) 50 %; Platelet Count 425 k/uL (150-450); Poikilocytosis Slight; RDW 14.9 % (11.5-15.5); WBC 4.6 k/uL (3.8-10.6)
[2022-11-04 14:52] LABS: HGB 7.5 gm/dL (11.4-16.0)
[2022-11-04 15:04] LABS: INR 0.9 (<1.2); Prothrombin Time 9.6 sec (9.0-12.0)
[2022-11-04 15:05] LABS: Partial Thromboplastin Time 22.3 sec (22.0-30.0)
[2022-11-04] MEDS ORDERED: PANTOPRAZOLE 40 MG/10 ML VIAL IVP STA (19:21)
[2022-11-04 20:03] LABS: ALT 13 U/L (4-34); AST 22 U/L (14-36); African American GFR (CKD) >90 (>60 ml/min/1.73 sqM); Albumin 3.4 g/dL (3.5-5.0); Alkaline Phosphatase 68 U/L (38-126); Anion Gap 3 mmol/L; Blood Urea Nitrogen 15 mg/dL (7-17); Calcium 8.5 mg/dL (8.4-10.2); Carbon Dioxide 29 mmol/L (22-30); Chloride 107 mmol/L (98-107); Glucose 88 mg/dL (74-99); Non-African American GFR(CKD) 87 (>60 ml/min/1.73 sqM); Potassium 4.2 mmol/L (3.5-5.1); Sodium 139 mmol/L (137-145); Total Bilirubin 0.3 mg/dL (0.2-1.3); Total Protein 6.3 g/dL (6.3-8.2)
[2022-11-04 20:55] VITALS: PULSE 71; RESP 17; TEMP 98.2
[2022-11-04 20:56] VITALS: BP 122/74
[2022-11-05 09:02] LABS: % Iron Saturation 2.57 (12.00-45.00); Iron 11 ug/dL (50-170); Total Iron Binding Capacity 444 ug/dL (228-460)
== END 2022-11-04 21:03 | disposition home or self-care (01) ==
LOC: EC 13:12
DX: D64.9 Anemia, unspecified (principal); Z87.891 Personal history of nicotine dependence; Z88.5 Allergy status to narcotic agent
CPT/HCPCS: 36415; 86900; 86901; 80053; 82607; 82746; 83540; 83550; 85025; 85610; 85730; 86850; 86920; 82272; 99284; 96374; 36430; P9016; C9113

== ENCOUNTER → 2023-09-22 | Outpatient (CLI) | payer MEDICARE ==
--- NOTE | 2023-09-27 11:25 | NM ---
EXAMINATION TYPE: NM DatScan Brain SPECT DATE OF EXAM: 09/22/2023 COMPARISON: NONE HISTORY: Tremor TECHNIQUE: 10 drops of Lugol's solution was administered 1 hour prior to injection as a thyroid bloc dina agent. After the administration of 4.58 mCi I-123 Ioflupane DaTscan. Images obtained 3 hours p ost injection. SPECT images of the brain were acquired with axial and coronal reconstructions. FINDINGS: The axial SPECT images demonstrate increased background activity and normal symmetric activ ity within the bilateral striata. Z score analysis was performed. IMPRESSION: No diagnostic evidence suggestive of idiopathic Parkinson's disease or Parkinsonian syndr ome.
== END | disposition home or self-care (01) ==
LOC: RADNMMAIN 10:37
PROVIDERS: ATTEND Psychiatry & Neurology Neurology
DX: R26.0 Ataxic gait (principal); G31.84 Mild cognitive impairment of uncertain or unknown etiology; R25.1 Tremor, unspecified; R29.898 Other symptoms and signs involving the musculoskeletal system
CPT/HCPCS: 78803; A9584